=== PATIENT | female | born 1950 | race Caucasian/White ===

== ENCOUNTER 2019-09-01 07:59 | Outpatient (RCR) | payer MEDICARE, BC, SELFPAY ==
--- NOTE | 2019-11-03 12:43 | PCWOUND ---
WOCN NOTE Patient unable to be evaluated due to COVID 19 restrictions. Held phone assessment. Patients reports area to the left posterior thigh measures 2.5 cm in length by 2 cm in width by 0.1 in depth. reports NO SS of infection present. Patient in need of home wound care supplies.
== END 2019-09-29 23:59 | disposition home or self-care (01) ==
LOC: ANHWOC 07:59
PROVIDERS: PCP Internal Medicine; Visit Provider Internal Medicine
DX: L97.129 Non-pressure chronic ulcer of left thigh with unspecified severity (principal)
CPT/HCPCS: 99212; G0463

== ENCOUNTER 2019-09-10 14:54 | Outpatient (CLI) | payer MEDICARE, SELFPAY ==
--- NOTE | ~2019-09-10 | CT_ITS ---
EXAMINATION: CT soft tissue neck wo con EXAM DATE: 09/10/2019 15:28 INDICATION: Parotid mass. TECHNIQUE: Spiral CT of the neck was performed without contrast. Axial, coronal and sagittal images were reviewed. The dose-length product (DLP) for this examination was 550.28 mGy-cm. The exposure was tailored according to patient size (auto mA exposure control), and iterative reconstruction (ASIR ) was used as additional dose reduction technique. Comparison is made to prior examination from 2014. FINDINGS: The thyroid gland is unremarkable. The submandibular and parotid glands are symmetric. There is no cervical lymphadenopathy. There are no masses identified. The superior mediastinum is unremarkable. The airway is unremarkable. Parapharyngeal and pre-glottic fat planes are preserve d. Limited evaluation of cervical vessels on this noncontrast study. The orbits are unremarkable. Visualized sinuses and mastoid air cells are well aerated. Lung apices unremarkable. Advanced c ervical spondylosis. Visualized sinuses are aerated. IMPRESSION: No parotid mass or cervical lymphadenopathy. Reviewed, dictated and finalized at location B. LEY COLLECTOR
== END 2019-09-10 14:55 | disposition home or self-care (01) ==
PROVIDERS: PCP Internal Medicine; Visit Provider Otolaryngology
DX: R22.0 Localized swelling, mass and lump, head (principal)
CPT/HCPCS: 70490

== ENCOUNTER 2020-05-23 15:22 | Emergency (ER) | payer MEDICARE, SELFPAY ==
--- NOTE | ~2020-05-23 | XR_ITS ---
EXAMINATION: XR chest 2V DATE: 05/23/2020 16:38 INDICATION: Left sternal chest pain TECHNIQUE: frontal and lateral views of the chest were obtained. COMPARISON: Chest radiograph dated 10/06/2015 FINDINGS: Cardiomegaly. Opacities at the posterior lung bases on the lateral projection. No pneumothorax or def initive pleural effusion. Mild thoracic spondylosis. IMPRESSION: 1. Opacities in the dependent lung zones which could represent atelectasis, aspiration, pneumonia or mild pulmonary edema. 2. Cardiomegaly. Reviewed, dictated and finalized at location B. IMPRESSION: 1. Opacities in the dependent lung zones which could represent atelectasis, asp iration, pneumonia or mild pulmonary edema. 2. Cardiomegaly.
--- NOTE | 2020-05-23 15:25 | ECG_ITS ---
Measurements Intervals [place] Rate: 86 P: 36 MT: 162 QRS: -25 QRSD: 117 T: 44 QT: 413 QTc: 497 Interpretive Statements SINUS RHYTHM INCOMPLETE LEFT BUNDLE BRANCH BLOCK BORDERLINE R WAVE PROGRESSION, ANTERIOR LEADS BORDERLINE ST ABNORMALITY- HIGH LATERAL LEADS BASELINE ARTIFACT- I, II, III, AVR, AVL, AVF, V1-V3 ABNORMAL ECG Electronically Signed On 05-23-2020 15:42:15 CDT by Paulo Cruz D.O.
--- NOTE | 2020-05-23 15:48 | ED.CHESTPAIN ---
HPI - Chest Pain General Chief Complaint: Chest Pain Stated Complaint: chest pain Time Seen by Provider: 05/23/20 15:25 Source: patient and family Mode of arrival: wheelchair Limitations: no limitations History of Present Illness HPI narrative: 69-year-old female History of diabetes hypertension high cholesterol and morbid obesity Complains that she was on her way to a doctor's appointment in their van today and her left shoulder back and chest began to hurt She said to her it felt muscular Does not think she had any undue strains or exertions and getting into the van Was very And it is better now No associated diaphoresis dizziness dyspnea nausea or vomiting She currently has very little discomfort but symptoms cannot be renewed by moving her left arm about Related Data Home Medications Medication Instructions Recorded Confirmed acetaminophen 325 mg PO ONCE PRN 05/27/19 07/01/19 albuterol sulfate 2 puff INHALATION QID PRN 05/27/19 07/01/19 ascorbic acid (vitamin C) [Vitamin 500 mg PO DAILY 05/27/19 07/01/19 C] calcium carbonate-vitamin D3 1 tablet PO BID 05/27/19 07/01/19 [Os-Zbigniew 500 + D3] levothyroxine 25 mcg PO DAILY 05/27/19 07/01/19 metoprolol tartrate [Lopressor] 50 mg PO Q12H 05/27/19 07/01/19 nomegqenxmek-dzi-iecu-FA-vit K 1 tablet PO DAILY 05/27/19 07/01/19 [Adults Multivitamin] nystatin 1 applic TOPICAL BID 05/27/19 07/01/19 polyethylene glycol 3350 [Miralax] 17 g PO DAILY 05/27/19 07/01/19 amlodipine 5 mg tablet 5 mg PO DAILY 02/24/20 Allergies Allergy/AdvReac Type Severity Reaction Status Date / Time heparin Allergy Unknown unknown Verified 05/23/20 15:52 Heparin Analogues Allergy Unknown unknown Verified 05/23/20 15:52 Iodinated Contrast Media Allergy Unknown unknown Verified 05/23/20 15:52 iodine Allergy Unknown unknown Verified 05/23/20 15:52 morphine Allergy Unknown unknown Verified 05/23/20 15:52 Review of Systems Review of Systems: All systems reviewed & are unremarkable except as noted in HPI and below Constitutional: Constitutional: Denies chills, Denies fatigue, Denies fever(s), Denies headache(s) and Reports weakness Eyes: Eyes: Denies change in vision and Denies other visual disturbances ENT: Denies headache(s), Denies epistaxis, Denies nasal congestion and Denies sore throat Cardiovascular: Cardiovascular: Denies chest pain, Denies leg edema, Denies palpitations and Denies dyspnea Respiratory: Respiratory: Denies cough, Reports dyspnea and Denies wheezing Gastrointestinal: Gastrointestinal: Denies abdominal pain, Denies diarrhea, Denies nausea and Denies vomiting Genitourinary: Genitourinary: Denies urinary frequency Musculoskeletal: Musculoskeletal: Reports back pain, Reports myalgias, Denies deformity, Reports arthralgias, Denies joint swelling, Denies muscle weakness and Denies numbness Integumentary/Breasts: Skin/Breast: Denies rash, Denies unusual bruising and Denies wounds Neurologic: Denies Abnormal speech present, Denies headache(s), Denies focal weakness, Denies numbness and Denies weakness Psychiatric: Psychiatric: Reports no additional psychiatric complaints Endocrine: Endocrine: Denies fatigue and Denies palpitations Hematologic/Lymphatic: Hematologic/Lymphatic: Denies easy bleeding and Denies easy bruising Allergic/Immunologic: Allergic/Immunologic: Denies wheezing PMFSH Past Medical History Medical History (Updated 05/23/20 @ 20:03 by George Downs MD) BiPAP (biphasic positive airway pressure) dependence Dependence on supplemental oxygen Dysuria Hx of pulmonary embolus Morbid obesity Type 2 diabetes mellitus without complications Family History Family History Mother Patient's mother is Acute myocardial infarction Family history of obesity Father Patient's father is Family history of chronic obstructive pulmonary disease, Onset Age: 70 Sibling Mora
[2020-05-23 15:55] VITALS: BP 128/57; PULSE 82; RESP 20; TEMP 36.9; O2SAT 98
--- NOTE | 2020-05-23 15:59 | PC.NURSE ---
Called Phlebotomy to draw pt
[2020-05-23 16:20] LABS: Basophils Percent Auto 0.2 % (0.2-1.2); Eosinophils Absolute Auto 0.3 K/mm3 (0-0.3); Eosinophils Percent Auto 3.5 % (0-4.4); Hematocrit 31.9 % (37.0-47.0); Hemoglobin 10.3 g/dL (12.0-15.0); Immature Granulocyte Absolute 0.03 K/mm3 (0.00-0.031); Immature Granulocyte Percent A 0.4 % (0-0.5); Lymphocytes Absolute Auto 1.78 K/mm3 (0.9-3.2); Lymphocytes Percent Auto 21.5 % (18.3-44.2); Mean Corpuscular HGB Conc 32.3 g/dl (32-36); Mean Corpuscular Hemoglobin 32.9 pg (26-34); Mean Corpuscular Volume 101.9 fl (80-100); Monocytes Absolute Auto 0.7 K/mm3 (0.1-0.6); Monocytes Percent Auto 8.2 % (2.6-8.5); Neutrophils Absolute Auto 5.5 K/mm3 (1.3-6.7); Neutrophils Percent Auto 66.2 % (45.5-73.1); Platelet Count Result 250 k/mm3 (150-375); Red Blood Count 3.13 M/mm3 (4.2-5.4); Red Cell Distribution Width 13.9 % (11.5-14.5); White Blood Count 8.3 K/mm3 (4.5-10.0)
[2020-05-23 16:31] LABS: Anion Gap 8 mmol/L (8-16); Blood Urea Nitrogen 33 mg/dL (7-17); Calcium 8.9 mg/dL (8.4-10.2); Carbon Dioxide 30 mmol/L (22-30); Chloride 101 mmol/L (98-107); Estimated Glomerular Filt Rate 37; Glucose 122 mg/dL (65-105); Potassium 4.6 mmol/L (3.4-5.0); Sodium 139 mmol/L (137-145)
[2020-05-23 16:40] LABS: INR 1.6; Prothrombin Time 18.5 Seconds (11.1-14.7)
[2020-05-23 16:41] LABS: Partial Thromboplastin Time 33.3 SECONDS (22.3-36.8)
[2020-05-23 16:42] LABS: Troponin I < 0.012 ng/mL (0.000-0.034)
[2020-05-23] MEDS: ASPIRIN 81 MG CHEWABLE TABLET 324 MG PO (16:53)
[2020-05-23 18:33] LABS: Troponin I < 0.012 ng/mL (0.000-0.034)
== END 2020-05-23 20:08 | disposition home or self-care (01) ==
PROVIDERS: Emergency Provider Emergency Medicine; PCP Internal Medicine
DX: R07.9 Chest pain, unspecified (principal); E11.9 Type 2 diabetes mellitus without complications; I10 Essential (primary) hypertension; E78.00 Pure hypercholesterolemia, unspecified; E66.01 Morbid (severe) obesity due to excess calories; Z99.81 Dependence on supplemental oxygen; Z86.711 Personal history of pulmonary embolism; I44.7 Left bundle-branch block, unspecified; R94.31 Abnormal electrocardiogram [ECG] [EKG]; Z79.4 Long term (current) use of insulin
CPT/HCPCS: 36415; 71046; 80048; 84484; 85025; 85610; 85730; 93005; 99284; A9270

== ENCOUNTER 2020-05-25 07:18 | Outpatient (RCR) | payer MEDICARE, SELFPAY ==
--- NOTE | 2019-10-12 10:54 | PCWOUND ---
Appointment cancelled for 10/13/19 due to COVID-19 fear and patient having respiratory issues. Appointment rescheduled for 11/03/19. Patient will notify wound center of any changes.
--- NOTE | 2019-11-03 09:07 | PCWOUND ---
WOCN NOTE patients spouse called to cancel appointment for today 11/03/2019 due to the COVID-19 restrictions. Spouse will contact wound center for next appointment once restrictions are lifted.
== END 2020-06-05 23:59 | disposition home or self-care (01) ==
LOC: ANHWOC 07:18
PROVIDERS: PCP Internal Medicine; Visit Provider Internal Medicine
DX: L97.129 Non-pressure chronic ulcer of left thigh with unspecified severity (principal)
CPT/HCPCS: 99212; 99213; A9270; G0463

== ENCOUNTER 2020-10-25 07:41 | Outpatient (RCR) | payer MEDICARE, SELFPAY | END 2020-11-07 23:59 | disposition home or self-care (01) | LOC: ANHWOC 07:41 | PROVIDERS: PCP Internal Medicine; Visit Provider Internal Medicine | DX: L97.129 Non-pressure chronic ulcer of left thigh with unspecified severity (principal); I83.009 Varicose veins of unspecified lower extremity with ulcer of unspecified site | CPT/HCPCS: 99212; 99213; A9270; G0463 ==

== ENCOUNTER 2020-11-13 15:25 | Outpatient (CLI) | payer MEDICARE, SELFPAY ==
--- NOTE | ~2020-11-13 | US_ITS ---
EXAMINATION: US venous doppler UE DATE: 11/13/2020 16:35 INDICATION: Left upper limb pain. TECHNIQUE: Grayscale ultrasound images without and with compression and Doppler ultrasound images of the left upper extremity veins were obtained. COMPARISON: None. FINDINGS: The visualized portions of the left internal jugular vein, subclavian vein, axillary vein, brachial v eins, basilic vein, cephalic vein, radial vein, and ulnar vein are patent. IMPRESSION: 1. No deep venous thrombosis. Reviewed, dictated and finalized at location B.
[2020-11-13 16:20] LABS: Basophils Percent Auto 0.2 % (0.2-1.2); Eosinophils Absolute Auto 0.5 K/mm3 (0-0.3); Eosinophils Percent Auto 5.7 % (0-4.4); Hematocrit 28.3 % (37.0-47.0); Hemoglobin 8.6 g/dL (12.0-15.0); Immature Granulocyte Absolute 0.02 K/mm3 (0.00-0.031); Immature Granulocyte Percent A 0.2 % (0-0.5); Lymphocytes Absolute Auto 1.95 K/mm3 (0.9-3.2); Lymphocytes Percent Auto 23.2 % (18.3-44.2); Mean Corpuscular HGB Conc 30.4 g/dl (32-36); Mean Corpuscular Hemoglobin 29.1 pg (26-34); Mean Corpuscular Volume 95.6 fl (80-100); Mean Platelet Volume 9.9 fl (7.4-10.4); Monocytes Absolute Auto 0.7 K/mm3 (0.1-0.6); Monocytes Percent Auto 8.5 % (2.6-8.5); Neutrophils Absolute Auto 5.2 K/mm3 (1.3-6.7); Neutrophils Percent Auto 62.2 % (45.5-73.1); Platelet Count Result 282 k/mm3 (150-375); Red Blood Count 2.96 M/mm3 (4.2-5.4); Red Cell Distribution Width 15.1 % (11.5-14.5); White Blood Count 8.4 K/mm3 (4.5-10.0)
[2020-11-13 16:30] LABS: Anion Gap 7 mmol/L (8-16); Blood Urea Nitrogen 26 mg/dL (7-17); Carbon Dioxide 29 mmol/L (22-30); Chloride 104 mmol/L (98-107); Estimated Glomerular Filt Rate 34; Glucose 106 mg/dL (65-105); Potassium 4.4 mmol/L (3.4-5.0); Sodium 140 mmol/L (137-145)
[2020-11-13 16:32] LABS: INR 2.4; Prothrombin Time 26.8 Seconds (11.1-14.7)
[2020-11-13 16:33] LABS: Rheumatoid Factor < 8.6 IU/ML (<12)
[2020-11-13 17:12] LABS: Erythrocyte Sedimentation Rate > 140 mm/hr (0-20)
== END 2020-11-13 15:26 | disposition home or self-care (01) ==
PROVIDERS: PCP Internal Medicine; Visit Provider Internal Medicine
DX: M79.10 Myalgia, unspecified site (principal); Z79.01 Long term (current) use of anticoagulants; M79.642 Pain in left hand; M79.89 Other specified soft tissue disorders; N18.30 Chronic kidney disease, stage 3 unspecified
CPT/HCPCS: 36415; 80048; 85025; 85610; 85652; 86430; 93971

== ENCOUNTER 2021-01-10 07:20 | Outpatient (RCR) | payer MEDICARE, SELFPAY ==
--- NOTE | 2021-01-31 12:12 | PCWOUND ---
WOCN NOTE cancelled appointment for next week patient currently has home health to care for wounds. daughter will call when wound care needs to resume.
== END 2021-02-13 23:59 | disposition home or self-care (01) ==
LOC: ANHWOC 07:20
PROVIDERS: PCP Internal Medicine; Visit Provider Internal Medicine
DX: L97.129 Non-pressure chronic ulcer of left thigh with unspecified severity (principal); I83.009 Varicose veins of unspecified lower extremity with ulcer of unspecified site
CPT/HCPCS: 99212; 99213; A9270; G0463

== ENCOUNTER 2021-01-17 16:06 | Inpatient (IN) | payer MEDICARE, SELFPAY ==
[2021-01-17] VITALS (18 sets, daily range): BP systolic 114–141; BP diastolic 50–53; PULSE 53–71; RESP 14–21; TEMP 36.7–37.1; O2SAT 95–100; BMI 64.5
--- NOTE | ~2021-01-17 | XR_ITS ---
XR chest 1V portable 01/21/2021 06:13 Indication: Dyspnea Procedure: AP portable chest Comparison: Comparison to multiple prior studies sequentially, with oldest reviewed study dated 09/22. Findings: Cardiomegaly. Pulmonary edema. Small right pleural effusion. No pneumothorax. No acute osse ous abnormality. Impression: 1: Cardiomegaly with pulmonary edema. Reviewed, dictated and finalized at location A. Impression: 1: Cardiomegaly with pulmonary edema.
--- NOTE | ~2021-01-17 | CT_ITS ---
EXAMINATION: CT abdomen pelvis wo con DATE: 01/17/2021 16:57 INDICATION: Right abdominal pain. TECHNIQUE: Computed tomography (CT) of the abdomen and pelvis was performed without intravenous contr ast. Automated exposure control and iterative reconstruction technique were employed. The dose-length product was 1696.40 mGy-cm. COMPARISON: CT abdomen and pelvis 03/03/2015 FINDINGS: Sensitivity is decreased by obesity. The visualized portions of the lung bases demonstrate mild atelectasis. Calcified left lung nodules and calcified left hilar lymph nodes are consistent wit h old granulomatous disease. No pleural effusion. Cardiomegaly is noted. There are coronary artery ca lcifications. There are calcifications of the aortic valve. No pericardial effusion. The liver, gallb ladder, spleen, pancreas, adrenal glands, and kidneys are normal. There is a filter in the infrarenal inferior vena cava. There are no dilated loops of bowel. The appendix is normal. There are no pathol ogically enlarged lymph nodes. There are old healed fractures of right superior and inferior pubic ra mi. There are old fracture deformities of the sacrum. There is lumbar levoscoliosis and severe spondy losis. IMPRESSION: 1. No etiology for the patient's symptoms. Reviewed, dictated and finalized at location A.
--- NOTE | 2021-01-17 16:39 | ED.ABDPAIN ---
HPI - Abdominal Pain General Chief Complaint: Abdominal Pain Stated Complaint: ABD PAIN Time Seen by Provider: 01/17/21 16:11 Source: RN notes reviewed History of Present Illness HPI narrative: Patient presents emergency department from home for abdominal pain. Patient states pain began approximately 1 hour ago. The pain is located in the right lower abdomen and radiates around to the right flank described as sharp and stabbing patient states she has recently had a UTI and was initially on a 7-day course of Bactrim which she completed and then on a 7-day course of Macrobid patient denies any fever chills chest pain shortness of breath nausea vomiting or any other symptoms states that denies any other symptoms at this time. Patient states she is chronically on 2 L nasal cannula Related Data Home Medications Medication Instructions Recorded Confirmed ascorbic acid (vitamin C) [Vitamin 500 mg PO DAILY 05/27/19 01/03/21 C] calcium carbonate-vitamin D3 1 tablet PO BID 05/27/19 01/03/21 [Os-Zbigniew 500 + D3] acetaminophen 1,000 mg PO BID PRN 01/17/21 Allergies Allergy/AdvReac Type Severity Reaction Status Date / Time heparin Allergy Unknown Itching Verified 01/17/21 16:15 Heparin Analogues Allergy Unknown Itching Verified 01/17/21 16:15 Iodinated Contrast Media Allergy Unknown Rash Verified 01/17/21 16:15 iodine Allergy Unknown Rash Verified 01/17/21 16:15 morphine Allergy Unknown Itching Verified 01/17/21 16:15 Review of Systems Review of Systems: Narrative: Gen.: Denies fevers or chills ENT: Denies congestion Respiratory: Denies shortness of breath or cough CV: Denies chest pain or palpitations GI: See HPI denies burning, urgency, frequency or hematuria Musculoskeletal: Denies back pain or muscle pain Neuro: Denies numbness, tingling, weakness or focal weakness Skin: Denies rash Except as documented, all other systems reviewed and negative PMFSH Past Medical History Medical History BiPAP (biphasic positive airway pressure) dependence Dependence on supplemental oxygen Dysuria Hx of pulmonary embolus Morbid obesity Type 2 diabetes mellitus without complications Family History Family History Mother Patient's mother is Acute myocardial infarction Family history of obesity Father Patient's father is Family history of chronic obstructive pulmonary disease, Onset Age: 70 Sibling Patient's sister is Patient's brother is Patient's brother is in good health Family history of coronary artery disease Other Family history of congestive heart failure Family history of lung disease Social History Social History Smoking status: Never smoker Second hand tobacco smoke exposure: No Alcohol intake: never Substance use: never Exam Narrative: Exam Narrative: APPEARANCE: No acute distress, nontoxic, resting in bed HEENT: Normocephalic, atraumatic, OMM RESPIRATORY: No respiratory distress, clear to auscultation bilaterally with no rhonchi wheezing or rales CARDIOVASCULAR: RRR s murmur ABDOMINAL: Obese, soft, nondistended tender palpation right lower quadrant no tenderness right upper quadrant, left upper quadrant left lower quadrant no rebound or guarding Rectal: Moderate amount of soft brown stool that is Hemoccult negative MUSCULOSKELETAl: Moves all extremities. No clubbing, cyanosis or edema. NEURO: Awake and alert. Following commands, speech normal, no focal deficits SKIN:: Warm, dry. Normal Color pressure wounds over the left labia with no surrounding erythema or signs of infection PSYCHIATRIC: Normal affect/mood Course Course Emergency Course: Patient states she is followed by wound care for labial pressure wounds Discussed with GAURANG High for Dr. Hartman presentation work-up agrees with
[2021-01-17 16:40] LABS: Basophils Percent Auto 0.3 % (0.2-1.2); Eosinophils Absolute Auto 0.5 K/mm3 (0-0.3); Eosinophils Percent Auto 6.7 % (0-4.4); Hematocrit 25.5 % (37.0-47.0); Hemoglobin 7.7 g/dL (12.0-15.0); Immature Granulocyte Absolute 0.02 K/mm3 (0.00-0.031); Immature Granulocyte Percent A 0.3 % (0-0.5); Lymphocytes Absolute Auto 1.83 K/mm3 (0.9-3.2); Mean Corpuscular HGB Conc 30.2 g/dl (32-36); Mean Corpuscular Hemoglobin 29.5 pg (26-34); Mean Corpuscular Volume 97.7 fl (80-100); Mean Platelet Volume 9.8 fl (7.4-10.4); Monocytes Absolute Auto 0.7 K/mm3 (0.1-0.6); Monocytes Percent Auto 9.5 % (2.6-8.5); Neutrophils Percent Auto 57.2 % (45.5-73.1); Platelet Count Result 269 k/mm3 (150-375); Red Blood Count 2.61 M/mm3 (4.2-5.4); Red Cell Distribution Width 15.9 % (11.5-14.5)
[2021-01-17 16:50] LABS: Alanine Aminotransferase 12 U/L (4-35); Albumin Level 3.8 g/dL (3.5-5.1); Alkaline Phosphatase 65 U/L (38-126); Anion Gap 8 mmol/L (8-16); Aspartate Amino Transferase 28 U/L (14-36); Bilirubin,Total 0.2 mg/dL (0.2-1.3); Blood Urea Nitrogen 26 mg/dL (7-17); Calcium 8.6 mg/dL (8.4-10.2); Carbon Dioxide 25 mmol/L (22-30); Chloride 108 mmol/L (98-107); Estimated CRCL calculation 61 ml/min; Estimated Glomerular Filt Rate 44; Glucose 125 mg/dL (65-105); Lipase 87 U/L (23-300); Partial Thromboplastin Time 38.5 SECONDS (22.3-36.8); Potassium 4.8 mmol/L (3.4-5.0); Prothrombin Time 22.9 Seconds (11.1-14.7); Sodium 141 mmol/L (137-145)
[2021-01-17 17:34] LABS: Add Urine Microscopic? YES; Appearance Urine Cloudy (Clear); Bacteria Urine 1+ /hpf; Bilirubin Urine Negative (Negative); Color Urine Yellow (Yellow); Glucose Urine UA Negative (Negative); Ketones Urine Negative (Negative); Leukocyte Esterase Ur 3+ LEU/UL (Negative); Mucus Urine Rare /lpf; Nitrate Urine Negative (Negative); Protein Urine Negative (Negative); Squamous Epithelial Cell Urine Many /hpf (Few); Urobilinogen Urine Negative mg/dL (<2.0); WBC Urine >75 /hpf
[2021-01-17 17:35] LABS: Blood Urine Negative (Negative)
[2021-01-17 18:08] LABS: Glucose Point of Care 91 mg/dl (65-105)
--- NOTE | 2021-01-17 18:51 | PC.NURSE ---
pt had just been incontinent of urine. used ceiling lift to elevate pt to change linens. thapa placed with 700 cc cloudy yellow urine returned.
--- NOTE | 2021-01-17 20:03 | PC.NURSE ---
report to AYLIN DACOSTA. pt to go to room 300-1
--- NOTE | 2021-01-17 21:13 | ADMGEN ---
This patient, Anna Greer, was admitted to [address] [place] [address] Room 300-01 at 2049. Patient/family oriented to hospital policies and general routines including ID bracelet, bed and alarms, visiting hours, pain management, procedures, bathroom and other care routines, personal items, smoking policy, room service/diet, and visiting hours. Information on how to activate the Rapid Response Team has been discussed. Patient/Family are encouraged to report perceived risks to care and to ask questions if they do not understand what they are told or what they should do.
[2021-01-17 23:34] LABS: Hematocrit 25.9 % (37.0-47.0); Hemoglobin 7.7 g/dL (12.0-15.0)
[2021-01-18] VITALS (7 sets, daily range): BP systolic 110–133; BP diastolic 46–60; PULSE 68–78; RESP 13–22; TEMP 36.8–37.8; O2SAT 92–100
[2021-01-18 06:36] LABS: Hematocrit 24.8 % (37.0-47.0); Hemoglobin 7.5 g/dL (12.0-15.0)
[2021-01-18 07:09] LABS: Glucose Point of Care 116 mg/dl (65-105)
[2021-01-18 08:14] LABS: Alanine Aminotransferase 10 U/L (4-35); Albumin Level 3.5 g/dL (3.5-5.1); Alkaline Phosphatase 67 U/L (38-126); Anion Gap 7 mmol/L (8-16); Aspartate Amino Transferase 19 U/L (14-36); Bilirubin,Total 0.2 mg/dL (0.2-1.3); Blood Urea Nitrogen 23 mg/dL (7-17); Calcium 8.3 mg/dL (8.4-10.2); Carbon Dioxide 26 mmol/L (22-30); Chloride 105 mmol/L (98-107); Estimated CRCL calculation 60 ml/min; Estimated Glomerular Filt Rate 44; Glucose 123 mg/dL (65-105); Potassium 4.7 mmol/L (3.4-5.0); Sodium 138 mmol/L (137-145)
[2021-01-18 10:11] LABS: Hemoglobin 7.1 g/dL (12.0-15.0)
--- NOTE | 2021-01-18 10:51 | PM.IMHP ---
H&P: HPI History of Present Illness Date/Time: 01/18/21 08:15 Chief Complaint: Right lower quadrant pain Narrative: Patient is a 70-year-old female with a past medical history of diabetes chronic respiratory failure with home O2 use, COPD, CHF, appendectomy who presented to the ED for evaluation of right lower quadrant pain. Patient stated this all started about 2 weeks ago and stated that the pain is usually intermittent however yesterday her pain was consistent and unbelievable. Patient also stated that she uses O2 at home 2 L however she has noticed she has been more short of breath lately, which is abnormal to her considering that she can get up to the chair and pivot herself to the commode without becoming winded or short of breath. She did say that she has also noticed that she has been incontinent more lately. She stated that when she is sitting she just goes and does not realize. She also has lots of skin wounds on her legs, buttocks, labia, which are in all different stages of healing. Patient did state that she gets up with a walker at home. Patient does currently have a Crockett catheter which she stated was best for her at this time with the ulcers. I did talk to the patient about may be setting up something with care coordination about getting her an external catheter to help prevent further breakdown of her skin with the presence of urine. Patient did denied chest pain, palpitations, nausea, vomiting, constipation, diarrhea, decrease in appetite, sweats, chills, fever, syncope, falls, dizziness, lightheadedness. patient did state that she does have numbness and tingling in her fingers and toes. She stated this was a chronic issue. Patient also stated that she has felt like she has had more chills lately and has been really cold. Patient also stated that she has a cough that is pink and frothy in nature. Patient also talked about having a UTI. Patient states she was 1st notified by a her department coordinator, and then again by her urologist. Patient did states she was on antibiotics however she could not tell me which ones she was on. Looking upon her history I can see that she was prescribed Bactrim December 22, 2020, Nitrofurantoin which was prescribed on 01/09/2021, and penicillin VK which was prescribed on 01/04/21 which looks to be like a chronic antibiotic since it was for 90 day supply. Patient stated that she does not have any issues with burning or pain with urination. Feeling complaint she has is that she is incontinent most of the time. I did talk to the patient about care coordination and possibly getting her in external catheter. Patient also has many skin wounds. Ulceration on bilateral lower extremity was noted. She also has very dry skin on her inner thighs which look to be discolored. She also has 2 ulcerations on her buttocks bilaterally that are open and are draining blood and purulent type drainage. Wound nurses were and they are working with her today. At that time she was also stood. It was noted by the wound nurse that this patient has been here before with wound management. Patient did say that she is lives at home alone and that her daughter comes in every morning to change her leg bandages. Review of Systems Review of Systems: All systems reviewed & are unremarkable except as noted in HPI and below PMFSH Past Medical History Medical History Afib BiPAP (biphasic positive airway pressure) dependence CAD (coronary artery disease) CHF (congestive heart failure) COPD (chronic obstructive pulmonary disease) Dependence on supplemental oxygen Dysuria Frequent UTI Hx of pulmonary embolus Hyperlipidemia Morbid obesity Peripheral neuropathy Type 2 diabetes mellitus without complications Family History Family History Mother Acute myocardial infarction Patient's mother is Family history of obes
[2021-01-18 11:32] LABS: Glucose Point of Care 132 mg/dl (65-105)
[2021-01-18 12:58] LABS: Iron 35 ug/dL (37-170)
[2021-01-18] MEDS: SILVERGEL (ELTA) 45 ML 1 APPLIC TOPICAL (13:12)
[2021-01-18 13:19] LABS: Percent Iron Saturation 10 % (20-50)
[2021-01-18 17:41] LABS: Glucose Point of Care 120 mg/dl (65-105)
[2021-01-18] MEDS: FUROSEMIDE INJ 40 MG/4 ML VIAL IV PUSH (17:43)
[2021-01-18] MEDS: ASCORBIC ACID 500 MG TABLET PO (17:43)
[2021-01-18 19:48] LABS: Lactate Dehydrogenase 438 U/L (313-618)
[2021-01-18 19:53] LABS: Transferrin 275 mg/dL (206-381)
[2021-01-18 20:54] LABS: Folic Acid 6.6 ng/mL (2.76->20)
[2021-01-18] MEDS: INSULIN GLARGINE (*BKC) 100 UNITS/ML 85 UNITS SUB-Q (21:28)
[2021-01-18] MEDS: METOPROLOL TARTRATE 50 MG TAB PO (21:29)
[2021-01-18] MEDS: ACETAMINOPHEN 500 MG TABLET 1000 MG PO (21:43)
[2021-01-18 22:56] LABS: Glucose Point of Care 163 mg/dl (65-105)
[2021-01-19] VITALS (10 sets, daily range): BP systolic 108–150; BP diastolic 48–58; PULSE 70–89; RESP 18–22; TEMP 36.4–38.8; O2SAT 93–98
[2021-01-19] MEDS: LEVOTHYROXINE SODIUM 25 MCG TABLET PO (05:53)
[2021-01-19] MEDS: ACETAMINOPHEN 500 MG TABLET 1000 MG PO ×2 (06:08→19:01)
[2021-01-19 06:38] LABS: INR 1.7; Prothrombin Time 20.1 Seconds (11.1-14.7)
[2021-01-19 06:57] LABS: NT Pro B Type Natriuretic Pept 774 pg/mL (5-100)
[2021-01-19] MEDS: ATORVASTATIN 20 MG TABLET PO (07:56)
[2021-01-19] MEDS: PANTOPRAZOLE 40 MG TABLET PO (07:57)
[2021-01-19] MEDS: ASCORBIC ACID 500 MG TABLET PO ×2 (07:57→18:22)
[2021-01-19] MEDS: lisinopriL 5 MG TABLET PO (07:57)
[2021-01-19] MEDS: METOPROLOL TARTRATE 50 MG TAB PO ×2 (07:57→21:40)
[2021-01-19] MEDS: SILVERGEL (ELTA) 45 ML 1 APPLIC TOPICAL (07:58)
[2021-01-19] MEDS: FUROSEMIDE INJ 40 MG/4 ML VIAL IV PUSH ×2 (07:58→18:22)
[2021-01-19 08:00] LABS: Glucose Point of Care 123 mg/dl (65-105)
[2021-01-19 08:01] LABS: Hematocrit 24.7 % (37.0-47.0); Hemoglobin 7.2 g/dL (12.0-15.0); Mean Corpuscular HGB Conc 29.1 g/dl (32-36); Mean Corpuscular Hemoglobin 28.6 pg (26-34); Mean Platelet Volume 9.8 fl (7.4-10.4); Platelet Count Result 251 k/mm3 (150-375); Red Blood Count 2.52 M/mm3 (4.2-5.4); Red Cell Distribution Width 15.9 % (11.5-14.5); White Blood Count 9.2 K/mm3 (4.5-10.0)
[2021-01-19 08:40] LABS: Alanine Aminotransferase 9 U/L (4-35); Albumin Level 3.6 g/dL (3.5-5.1); Alkaline Phosphatase 55 U/L (38-126); Anion Gap 7 mmol/L (8-16); Aspartate Amino Transferase 28 U/L (14-36); Bilirubin,Total 0.6 mg/dL (0.2-1.3); Blood Urea Nitrogen 23 mg/dL (7-17); Calcium 8.6 mg/dL (8.4-10.2); Carbon Dioxide 27 mmol/L (22-30); Chloride 103 mmol/L (98-107); Estimated CRCL calculation 60 ml/min; Estimated Glomerular Filt Rate 44; Glucose 123 mg/dL (65-105); Potassium 4.8 mmol/L (3.4-5.0); Sodium 137 mmol/L (137-145)
--- NOTE | 2021-01-19 10:17 | P.PNIM_ITS ---
Progress Note: A&P Assessment and Plan (1) Acute UTI: Code(s): N39.0 - Urinary tract infection, site not specified Status: Acute Assessment and Plan: * Patient complains of RLQ pain that goes to the flank/back * Been treated with two different antibiotics for UTI with no success * Was treated with Bactrium and macrobid * On chronic PCN VK 500mg at home * Incontinent at home * UA showed Cloudy urine with WBC >75, Leukocyte Esterase 3+, and positive bacteria * Crockett inserted to control incontinence and wound care * Ceftriaxone 1gm Q24hr * Urine culture showed E Coli and susceptibility report confirms antibiotic ch oice * De-escalate antibiotics as needed. (2) Chronic hypoxemic respiratory failure: Code(s): J96.11 - Chronic respiratory failure with hypoxia Status: Acute Assessment and Plan: * On 2LNC at home * Here she is on 3LNC sat 95% * Wean oxygen as needed to maintain sats >92% * Continue home albuterol 2 puff QID, ipratropium 0.5mg neb * supplemental oxygen (3) Chronic obstructive pulmonary disease, unspecified: Qualifiers: COPD type: unspecified COPD Qualified Code(s): J44.9 - Chronic obstructive pulmonary disease, unspecified Code(s): J44.9 - Chronic obstructive pulmonary disease, unspecified Status: Acute Assessment and Plan: * See above (4) CHF (congestive heart failure): Qualifiers: Heart failure chronicity: acute on chronic Heart failure type: combined systolic and diastolic Qualified Code(s): I50.43 - Acute on chronic combined systolic (congestive) and diastolic (congestive) heart failure Code(s): I50.9 - Heart failure, unspecified Status: Acute Assessment and Plan: * Productive cough that is pink tinged * Hold home furosemide 60mg PO BID * Change to furosemide 40mg IV BID for 4 doses * Strict I&O * BNP 774 * Crockett catheter * Trend labs * Labs in the am (5) Chronic kidney disease, stage 3 (moderate): Qualifiers: Chronic kidney disease stage 3 subtype: stage 3b (GFR 30-44) Qualified Code(s): N18.32 - Chronic kidney disease, stage 3b Code(s): N18.3 - Chronic kidney disease, stage 3 (moderate) Status: Acute Assessment and Plan: * Creatinine today is 1.2 * Baseline creatinine is 1.2-1.5 * Avoid nephrotoxic medications * Trend hydration status * Lasix 40mg IV for 4 doses (6) Type 2 diabetes mellitus without complications: Qualifiers: Diabetes mellitus lobsterman insulin use: with lobsterman use Qualified Code(s): E11.9 - Type 2 diabetes mellitus without complications; Z79.4 - terminal carman (current) use of insulin Code(s): E11.9 - Type 2 diabetes mellitus without complications Status: Acute Assessment and Plan: * Current glucose 123 * Accu checks ACHS * Continue home Lantus 85 units * ISS * Trend Glucose * Adjust medications as needed. (7) A-fib: Qualifiers: Atrial fibrillation type: unspecified Qualified Code(s): I48.91 - Unspecified atrial fibrillation Code(s): I48.91 - Unspecified atrial fibrillation Status: Acute Assessment and Plan: * Chronic * Controlled * Metoprolol 50mg PO Q12hr, * Anticoagulation with warfarin 3mg PO daily * INR 1.7 * Trend INR till therapeutic * HR 70 (8) Abdominal pain, acute, right lower quadrant: Code(s):
--- NOTE | 2021-01-19 10:17 | PM.IMPN ---
Progress Note: A&P Assessment and Plan (1) Acute UTI: Code(s): N39.0 - Urinary tract infection, site not specified Status: Acute Assessment and Plan: Patient complains of RLQ pain that goes to the flank/back Been treated with two different antibiotics for UTI with no success Was treated with Bactrium and macrobid On chronic PCN VK 500mg at home Incontinent at home UA showed Cloudy urine with WBC >75, Leukocyte Esterase 3+, and positive bacteria Crockett inserted to control incontinence and wound care Ceftriaxone 1gm Q24hr Urine culture showed E Coli and susceptibility report confirms antibiotic choice De-escalate antibiotics as needed. (2) Chronic hypoxemic respiratory failure: Code(s): J96.11 - Chronic respiratory failure with hypoxia Status: Acute Assessment and Plan: On 2LNC at home Here she is on 3LNC sat 95% Wean oxygen as needed to maintain sats >92% Continue home albuterol 2 puff QID, ipratropium 0.5mg neb supplemental oxygen (3) Chronic obstructive pulmonary disease, unspecified: Qualifiers: COPD type: unspecified COPD Qualified Code(s): J44.9 - Chronic obstructive pulmonary disease, unspecified Code(s): J44.9 - Chronic obstructive pulmonary disease, unspecified Status: Acute Assessment and Plan: See above (4) CHF (congestive heart failure): Qualifiers: Heart failure chronicity: acute on chronic Heart failure type: combined systolic and diastolic Qualified Code(s): I50.43 - Acute on chronic combined systolic (congestive) and diastolic (congestive) heart failure Code(s): I50.9 - Heart failure, unspecified Status: Acute Assessment and Plan: Productive cough that is pink tinged Hold home furosemide 60mg PO BID Change to furosemide 40mg IV BID for 4 doses Strict I&O BNP 774 Crockett catheter Trend labs Labs in the am (5) Chronic kidney disease, stage 3 (moderate): Qualifiers: Chronic kidney disease stage 3 subtype: stage 3b (GFR 30-44) Qualified Code(s): N18.32 - Chronic kidney disease, stage 3b Code(s): N18.3 - Chronic kidney disease, stage 3 (moderate) Status: Acute Assessment and Plan: Creatinine today is 1.2 Baseline creatinine is 1.2-1.5 Avoid nephrotoxic medications Trend hydration status Lasix 40mg IV for 4 doses (6) Type 2 diabetes mellitus without complications: Qualifiers: Diabetes mellitus long-term insulin use: with vermin exterminator use Qualified Code(s): E11.9 - Type 2 diabetes mellitus without complications; Z79.4 - [facility] (current) use of insulin Code(s): E11.9 - Type 2 diabetes mellitus without complications Status: Acute Assessment and Plan: Current glucose 123 Accu checks ACHS Continue home Lantus 85 units ISS Trend Glucose Adjust medications as needed. (7) A-fib: Qualifiers: Atrial fibrillation type: unspecified Qualified Code(s): I48.91 - Unspecified atrial fibrillation Code(s): I48.91 - Unspecified atrial fibrillation Status: Acute Assessment and Plan: Chronic Controlled Metoprolol 50mg PO Q12hr, Anticoagulation with warfarin 3mg PO daily INR 1.7 Trend INR till therapeutic HR 70 (8) Abdominal pain, acute, right lower quadrant: Code(s): R10.31 - Right lower quadrant pain Status: Acute Assessment and Plan: Chronic UTI that has been treated three times outpatient Tender with palpation ABD CT does not show any abnormalities Will treat UTI and if worsens will get an ultrasound (9) Anemia: Qualifiers: Anemia type: unspecified type Qualified Code(s): D64.9 - Anemia, unspecified Code(s): D64.9 - Anemia, unspecified Status: Acute Assessment and Plan: HGB/HCT 7.2/24.7 Trend H/H Transfuse as needed Labs in the am Anemia
[2021-01-19 12:19] LABS: Glucose Point of Care 132 mg/dl (65-105)
[2021-01-19] MEDS: polyethylene glycoL 3350 17 GM POWD.PACK PO (12:45)
[2021-01-19 17:06] LABS: Glucose Point of Care 194 mg/dl (65-105)
[2021-01-19] MEDS: WARFARIN (*PBKC) 3 MG TABLET PO (18:22)
[2021-01-19 20:51] LABS: Glucose Point of Care 210 mg/dl (65-105)
[2021-01-19] MEDS: INSULIN GLARGINE (*BKC) 100 UNITS/ML 85 UNITS SUB-Q (21:41)
[2021-01-20] VITALS (14 sets, daily range): BP systolic 102–152; BP diastolic 33–56; PULSE 65–73; RESP 14–20; TEMP 36.3–37.7; O2SAT 92–99
[2021-01-20] MEDS: LEVOTHYROXINE SODIUM 25 MCG TABLET PO (06:20)
[2021-01-20 06:37] LABS: Basophils Percent Auto 0.1 % (0.2-1.2); Eosinophils Absolute Auto 0.3 K/mm3 (0-0.3); Eosinophils Percent Auto 3.5 % (0-4.4); Hematocrit 23.5 % (37.0-47.0); Immature Granulocyte Absolute 0.05 K/mm3 (0.00-0.031); Immature Granulocyte Percent A 0.5 % (0-0.5); Lymphocytes Absolute Auto 1.65 K/mm3 (0.9-3.2); Lymphocytes Percent Auto 17.6 % (18.3-44.2); Mean Corpuscular HGB Conc 29.4 g/dl (32-36); Mean Corpuscular Hemoglobin 28.4 pg (26-34); Mean Corpuscular Volume 96.7 fl (80-100); Mean Platelet Volume 9.9 fl (7.4-10.4); Monocytes Percent Auto 10.5 % (2.6-8.5); Neutrophils Absolute Auto 6.4 K/mm3 (1.3-6.7); Neutrophils Percent Auto 67.8 % (45.5-73.1); Platelet Count Result 241 k/mm3 (150-375); Red Blood Count 2.43 M/mm3 (4.2-5.4); Red Cell Distribution Width 15.8 % (11.5-14.5); White Blood Count 9.4 K/mm3 (4.5-10.0)
[2021-01-20 06:40] LABS: Hemoglobin 6.9 g/dL (12.0-15.0)
[2021-01-20 06:46] LABS: Alanine Aminotransferase 8 U/L (4-35); Albumin Level 3.5 g/dL (3.5-5.1); Alkaline Phosphatase 60 U/L (38-126); Anion Gap 7 mmol/L (8-16); Aspartate Amino Transferase 16 U/L (14-36); Bilirubin,Total 0.5 mg/dL (0.2-1.3); Blood Urea Nitrogen 23 mg/dL (7-17); Calcium 8.5 mg/dL (8.4-10.2); Carbon Dioxide 28 mmol/L (22-30); Chloride 100 mmol/L (98-107); Cholesterol 114 mg/dL (0-200); Estimated CRCL calculation 52 ml/min; Estimated Glomerular Filt Rate 37; Glucose 99 mg/dL (65-105); HDL Direct 24 mg/dL; Potassium 4.2 mmol/L (3.4-5.0); Sodium 135 mmol/L (137-145); Triglycerides 142 mg/dL (<150)
[2021-01-20 06:49] LABS: INR 1.5; Prothrombin Time 18.7 Seconds (11.1-14.7)
[2021-01-20 06:57] LABS: LDL Cholesterol Direct 39 mg/dL
[2021-01-20 06:58] LABS: Hypochromasia 2+ (NORMAL); Platelet Estimate Adequate (Adequate)
--- NOTE | 2021-01-20 07:35 | P.PNIM_ITS ---
Progress Note: A&P Assessment and Plan (1) Acute UTI: Code(s): N39.0 - Urinary tract infection, site not specified Status: Acute Assessment and Plan: * Patient complains of RLQ pain that goes to the flank/back * Been treated with two different antibiotics for UTI with no success * Was treated with Bactrium and macrobid * On chronic PCN VK 500mg at home * Incontinent at home * UA showed Cloudy urine with WBC >75, Leukocyte Esterase 3+, and positive bacteria * Crockett inserted to control incontinence and wound care * Ceftriaxone 1gm Q24hr * Urine culture showed Ecoli * De-escalate antibiotics as needed. (2) Chronic hypoxemic respiratory failure: Code(s): J96.11 - Chronic respiratory failure with hypoxia Status: Acute Assessment and Plan: * On 2LNC at home * Here she is on 3LNC sat 92% * Wean oxygen as needed to maintain sats >92% * Continue home albuterol 2 puff QID, ipratropium 0.5mg neb * supplemental oxygen (3) Chronic obstructive pulmonary disease, unspecified: Qualifiers: COPD type: unspecified COPD Qualified Code(s): J44.9 - Chronic obstructive pulmonary disease, unspecified Code(s): J44.9 - Chronic obstructive pulmonary disease, unspecified Status: Acute Assessment and Plan: * See above (4) CHF (congestive heart failure): Qualifiers: Heart failure chronicity: acute on chronic Heart failure type: combined systolic and diastolic Qualified Code(s): I50.43 - Acute on chronic combined systolic (congestive) and diastolic (congestive) heart failure Code(s): I50.9 - Heart failure, unspecified Status: Acute Assessment and Plan: * Productive cough that is clear and sticky * Hold home furosemide 60mg PO BID * furosemide 40mg IV BID for 4 more doses * Strict I&O * BNP in the am * Crockett catheter * Trend labs * Labs in the am * Daily weights * Echo ordered (5) Chronic kidney disease, stage 3 (moderate): Qualifiers: Chronic kidney disease stage 3 subtype: stage 3b (GFR 30-44) Qualified Code(s): N18.32 - Chronic kidney disease, stage 3b Code(s): N18.3 - Chronic kidney disease, stage 3 (moderate) Status: Acute Assessment and Plan: * Creatinine today is 1.4 * Baseline creatinine is 1.2-1.5 * Avoid nephrotoxic medications * Trend hydration status (6) Type 2 diabetes mellitus without complications: Qualifiers: Diabetes mellitus ad terminal makeup operator insulin use: with ad terminal makeup operator use Qualified Code(s): E11.9 - Type 2 diabetes mellitus without complications; Z79.4 - [facility] (current) use of insulin Code(s): E11.9 - Type 2 diabetes mellitus without complications Status: Acute Assessment and Plan: * Glucose today is 99 * Accu checks ACHS * Continue home Lantus 85 units * ISS * Trend Glucose * Adjust medications as needed. (7) A-fib: Qualifiers: Atrial fibrillation type: unspecified Qualified Code(s): I48.91 - Unspecified atrial fibrillation Code(s): I48.91 - Unspecified atrial fibrillation Status: Acute Assessment and Plan: * Chronic * Controlled * Metoprolol 50mg PO Q12hr, * Anticoagulation with warfarin 3mg PO daily, on hold for low HGB, awaiting occult blood * HR 70 (8) Abdominal pain, acute, right lower quadrant: Code(s): R10.31 - Right lower quadrant christophe
--- NOTE | 2021-01-20 07:35 | PM.IMPN ---
Progress Note: A&P Assessment and Plan (1) Acute UTI: Code(s): N39.0 - Urinary tract infection, site not specified Status: Acute Assessment and Plan: Patient complains of RLQ pain that goes to the flank/back Been treated with two different antibiotics for UTI with no success Was treated with Bactrium and macrobid On chronic PCN VK 500mg at home Incontinent at home UA showed Cloudy urine with WBC >75, Leukocyte Esterase 3+, and positive bacteria Crockett inserted to control incontinence and wound care Ceftriaxone 1gm Q24hr Urine culture showed Ecoli De-escalate antibiotics as needed. (2) Chronic hypoxemic respiratory failure: Code(s): J96.11 - Chronic respiratory failure with hypoxia Status: Acute Assessment and Plan: On 2LNC at home Here she is on 3LNC sat 92% Wean oxygen as needed to maintain sats >92% Continue home albuterol 2 puff QID, ipratropium 0.5mg neb supplemental oxygen (3) Chronic obstructive pulmonary disease, unspecified: Qualifiers: COPD type: unspecified COPD Qualified Code(s): J44.9 - Chronic obstructive pulmonary disease, unspecified Code(s): J44.9 - Chronic obstructive pulmonary disease, unspecified Status: Acute Assessment and Plan: See above (4) CHF (congestive heart failure): Qualifiers: Heart failure chronicity: acute on chronic Heart failure type: combined systolic and diastolic Qualified Code(s): I50.43 - Acute on chronic combined systolic (congestive) and diastolic (congestive) heart failure Code(s): I50.9 - Heart failure, unspecified Status: Acute Assessment and Plan: Productive cough that is clear and sticky Hold home furosemide 60mg PO BID furosemide 40mg IV BID for 4 more doses Strict I&O BNP in the am Crockett catheter Trend labs Labs in the am Daily weights Echo ordered (5) Chronic kidney disease, stage 3 (moderate): Qualifiers: Chronic kidney disease stage 3 subtype: stage 3b (GFR 30-44) Qualified Code(s): N18.32 - Chronic kidney disease, stage 3b Code(s): N18.3 - Chronic kidney disease, stage 3 (moderate) Status: Acute Assessment and Plan: Creatinine today is 1.4 Baseline creatinine is 1.2-1.5 Avoid nephrotoxic medications Trend hydration status (6) Type 2 diabetes mellitus without complications: Qualifiers: Diabetes mellitus detention insulin use: with exterminator helper termite use Qualified Code(s): E11.9 - Type 2 diabetes mellitus without complications; Z79.4 - [facility] (current) use of insulin Code(s): E11.9 - Type 2 diabetes mellitus without complications Status: Acute Assessment and Plan: Glucose today is 99 Accu checks ACHS Continue home Lantus 85 units ISS Trend Glucose Adjust medications as needed. (7) A-fib: Qualifiers: Atrial fibrillation type: unspecified Qualified Code(s): I48.91 - Unspecified atrial fibrillation Code(s): I48.91 - Unspecified atrial fibrillation Status: Acute Assessment and Plan: Chronic Controlled Metoprolol 50mg PO Q12hr, Anticoagulation with warfarin 3mg PO daily, on hold for low HGB, awaiting occult blood HR 70 (8) Abdominal pain, acute, right lower quadrant: Code(s): R10.31 - Right lower quadrant pain Status: Acute Assessment and Plan: Chronic UTI that has been treated three times outpatient Tender with palpation ABD CT does not show any abnormalities Will treat UTI and if worsens will get an ultrasound (9) Anemia: Qualifiers: Anemia type: unspecified type Qualified Code(s): D64.9 - Anemia, unspecified Code(s): D64.9 - Anemia, unspecified Status: Acute Assessment and Plan: HGB/HCT 6.9/23.5 Trend H/H 1 unit of PRBC ordered today (01/20/21) Transfuse as needed Labs in the am
[2021-01-20 07:41] LABS: Glucose Point of Care 92 mg/dl (65-105)
[2021-01-20] MEDS: ASCORBIC ACID 500 MG TABLET PO ×2 (08:24→18:26)
[2021-01-20] MEDS: PANTOPRAZOLE 40 MG TABLET PO ×2 (08:24→21:46)
[2021-01-20] MEDS: lisinopriL 5 MG TABLET PO (08:24)
[2021-01-20] MEDS: METOPROLOL TARTRATE 50 MG TAB PO ×2 (08:24→21:46)
[2021-01-20] MEDS: ATORVASTATIN 20 MG TABLET PO (08:24)
[2021-01-20] MEDS: SILVERGEL (ELTA) 45 ML 1 APPLIC TOPICAL (08:25)
[2021-01-20] MEDS: FUROSEMIDE INJ 40 MG/4 ML VIAL IV PUSH ×2 (08:25→18:26)
[2021-01-20] MEDS: polyethylene glycoL 3350 17 GM POWD.PACK PO (08:25)
[2021-01-20] MEDS: ACETAMINOPHEN 500 MG TABLET 1000 MG PO ×2 (08:38→21:47)
--- NOTE | 2021-01-20 09:38 | WPDGICN ---
Assessment and Plan Assessment and plan (1) JULIANNA (iron deficiency anemia): Code(s): D50.9 - Iron deficiency anemia, unspecified Status: Acute Assessment and Plan: 01/20/21 Consult GI Yessica Duke NP for Dr. Live Saleh Subjective: Alert and Oriented. No distress. complaining of RLQ pain but improved after tylenol and passing gas. She is currently on nasal cannala vis o2. She is currently eating a full breakfast with no complaints. She denies nausea or vomiting. Last BM on friday. Denies melena, hematochezia, or hematemesis. She does have Crockett in place. Exam: Abd Obese and generalized tenderness with no guarding or rigidity. Positive bowel sounds. 01/20/21: hgb 6.9/hct 23.5 iron 35, TIBC 36, Iron Sat 10%, ferritin 26 b12 385, folate 6.6 A. Iron Deficiency Anemia on Warfarin -GI blood will be ruled out but could be underlying AOCD. -hgb 7.7/hct 25.5 on admit -drop hgb 6.9/hct 23.5-1 unit PRBC ordered-pending transfusion -Iron 35, TIBC 36, iron sat 10%, ferritin 26 with normal b12 (borderline low) and folate -No visible signs of active GI bleeding at this time -Last colonoscopy [address] Harvey- Denies hx of polyps -Hx of ulcers per patient secondary to Aleve 5-6 years ago-Denies NSAIDs -Replace iron -PPI BID -Warfarin on hold -Monitor H&H, transfuse PRN -Start Clear liquids tomorrow and anticipate colon prep tomorrow -Potentially plan for EGD/Colonoscopy Friday with Dr. Susan Avila. RLQ abdominal pain -CT abd/pelvis without constrast showed no acute abnormalities -UTI with E.Coli -RLQ abdominal pain could be secondary to UTI or constipation -Monitor C. Chronic Constipationn -This is chronic -Manages with Miralax 17 gram daily outpatient -Continue Miralax 17 daily and increase to BID if needed-titrate to comfort D. GERD/Hx of Ulcers -hx of ulcers 5-6 years ago per patient -On nexium 40 mg outpatient -Increase PPI BID at this time due to JULIANNA as mentioned above -She is asymptomatic at this time. The procedures of colonoscopy and EGD, their indications, alternatives of barium studies and risks including perforation, bleeding, infection, reaction to medication as well as the possible need for blood or surgery were discussed with the patient prior to the procedure. The patient voices understanding, agrees to proceed and provides informed consent. GI Consult Note Consult date/time: 01/20/21 09:38 HPI: Anna Greer is a 70 year old female with PMH of CHF, Afib, COPD, CHF, CKD stage 3, lymphedema, DM type 2, HTN, peripheral neuropathy, sleep apnea, hx of gastric ulcer, chronic UTI, PE/DVT (2007), who is asked to be seen by hospitalist service for anemia. She presented to ED for RLQ abdominal pain that she described as throbbing and intermittent with no radiation. She also states yesterday she had [address] abd/pelvis without contrast that showed no acute abnormalities. She was noted to have UTI with culture +e coli. She was noted have baseline hgb 10 and on admission hgb 7.7/hct 25.5. She had a drop 01/20/21 hgb 6.9/hct 23.5. She denies any melena, hematochezia, hemtemesisu, or hematuria. She does report chronic constipation and takes Miralax 17 grams daily to keep her having 1-2 BM per day. She states her last BM was Friday, 01/17.She reports her appetite is well and felt nauseous yesterday but no vomiting. She denies any dyspepsia, brash, pyrosis, regurgitation, early satiety, diarrhea, dysphagia, odynophagia, food or lactose intolerance. She does have GERD and takes Nexium 40 mg with no complaints of breakthrough. She does states she has lost 10 lbs. She states she had Colonoscopy around [address] Harvey and has had total 3 colonoscopies. She denies hx of colon polyps. She does state she was told she had an ulcer before, but unsure if this was diagnosed via endoscopy. She said it was due to taking Aleve at th
[2021-01-20 10:00] LABS: Immature Reticulocyte Fraction 30.9 % (3.0-15.9); Reticulocyte Hemoglobin Conten 27.5 pg (28.2-35.7); Reticulocyte Percent 2.59 % (0.7-4.3); Reticulocytes Absolute 0.06 B/L (32.2-175.7)
[2021-01-20 12:10] LABS: Glucose Point of Care 123 mg/dl (65-105)
[2021-01-20] MEDS: FERROUS SULFATE 324 MG TABLET PO (12:38)
[2021-01-20] MEDS: TUBING, BLOOD PLUM PUMP TUBING 1 EACH XX (12:38)
[2021-01-20] MEDS: SODIUM CHLORIDE 0.9% IV 250 ML 30 ML IV CONT (12:39)
[2021-01-20 13:14] LABS: NT Pro B Type Natriuretic Pept 1320 pg/mL (5-100)
[2021-01-20] MEDS: HYDROcodone/acetaminophen (*CRX) 5-325 MG TABLET 1 TAB PO (16:34)
[2021-01-20 16:53] LABS: Glucose Point of Care 163 mg/dl (65-105)
[2021-01-20 22:36] LABS: Glucose Point of Care 160 mg/dl (65-105)
[2021-01-21] VITALS (9 sets, daily range): BP systolic 128–140; BP diastolic 37–56; PULSE 64–87; RESP 16–20; TEMP 36.7–37.2; O2SAT 92–100
[2021-01-21] MEDS: LEVOTHYROXINE SODIUM 25 MCG TABLET PO (06:01)
[2021-01-21] MEDS: ACETAMINOPHEN 500 MG TABLET 1000 MG PO (06:01)
[2021-01-21 06:44] LABS: Basophils Percent Auto 0.2 % (0.2-1.2); Eosinophils Absolute Auto 0.4 K/mm3 (0-0.3); Eosinophils Percent Auto 4.2 % (0-4.4); Hematocrit 26.4 % (37.0-47.0); Hemoglobin 7.9 g/dL (12.0-15.0); Immature Granulocyte Absolute 0.04 K/mm3 (0.00-0.031); Immature Granulocyte Percent A 0.5 % (0-0.5); Lymphocytes Absolute Auto 1.77 K/mm3 (0.9-3.2); Lymphocytes Percent Auto 20.3 % (18.3-44.2); Mean Corpuscular HGB Conc 29.9 g/dl (32-36); Mean Corpuscular Volume 97.1 fl (80-100); Mean Platelet Volume 10.2 fl (7.4-10.4); Monocytes Percent Auto 11.1 % (2.6-8.5); Neutrophils Absolute Auto 5.6 K/mm3 (1.3-6.7); Neutrophils Percent Auto 63.7 % (45.5-73.1); Platelet Count Result 253 k/mm3 (150-375); Red Blood Count 2.72 M/mm3 (4.2-5.4); Red Cell Distribution Width 15.8 % (11.5-14.5); White Blood Count 8.7 K/mm3 (4.5-10.0)
[2021-01-21 06:54] LABS: INR 1.2; Prothrombin Time 16.2 Seconds (11.1-14.7)
[2021-01-21 07:01] LABS: Alanine Aminotransferase 9 U/L (4-35); Albumin Level 3.5 g/dL (3.5-5.1); Alkaline Phosphatase 51 U/L (38-126); Anion Gap 8 mmol/L (8-16); Aspartate Amino Transferase 32 U/L (14-36); Bilirubin,Total 0.7 mg/dL (0.2-1.3); Blood Urea Nitrogen 28 mg/dL (7-17); Calcium 8.4 mg/dL (8.4-10.2); Carbon Dioxide 25 mmol/L (22-30); Chloride 101 mmol/L (98-107); Estimated CRCL calculation 56 ml/min; Estimated Glomerular Filt Rate 40; Glucose 115 mg/dL (65-105); Potassium 4.8 mmol/L (3.4-5.0); Sodium 134 mmol/L (137-145)
[2021-01-21 08:38] LABS: Glucose Point of Care 123 mg/dl (65-105)
[2021-01-21] MEDS: ATORVASTATIN 20 MG TABLET PO (08:54)
[2021-01-21] MEDS: HYDROcodone/acetaminophen (*CRX) 5-325 MG TABLET 1 TAB PO (08:54)
[2021-01-21] MEDS: ASCORBIC ACID 500 MG TABLET PO ×2 (08:54→17:02)
[2021-01-21] MEDS: FERROUS SULFATE 324 MG TABLET PO (08:55)
[2021-01-21] MEDS: lisinopriL 5 MG TABLET PO ×2 (08:55→17:04)
[2021-01-21] MEDS: METOPROLOL TARTRATE 50 MG TAB PO ×2 (08:55→21:24)
[2021-01-21] MEDS: PANTOPRAZOLE 40 MG TABLET PO ×2 (08:55→21:24)
[2021-01-21] MEDS: FUROSEMIDE INJ 40 MG/4 ML VIAL IV PUSH ×2 (08:55→17:07)
[2021-01-21] MEDS: polyethylene glycoL 3350 17 GM POWD.PACK PO (08:55)
[2021-01-21] MEDS: SILVERGEL (ELTA) 45 ML 1 APPLIC TOPICAL (08:56)
--- NOTE | 2021-01-21 10:18 | WPDGIPROGNO ---
Progress Note: A&P Additional Plan GI Therese for Candice 21 Jan 2021 Still with RLQ pain. No N/V/D/C/BRBPR/melena Pippa clears VSS soft/Right inguinal tenderness 01/20/21: hgb 6.9/hct 23.5 iron 35, TIBC 36, Iron Sat 10%, ferritin 26 b12 385, folate 6.6 01/21/2021: Hct 26, INR 1.2 A. Iron Deficiency Anemia on Warfarin: - Possible GI blood loss but could be underlying AOCD. - B12 is borderline low suggesting total body depletion; replete - Folate normal - No visible signs of active GI bleeding at this time - Last colonoscopy [address] Harvey- Denies hx of polyps - Hx of ulcers per patient secondary to Aleve 5-6 years ago-Denies NSAIDs - Replace iron - PPI BID - Warfarin on hold - Monitor H&H, transfuse PRN - Plan for EGD/Colonoscopy Friday with Dr. Candice Laughlin RLQ inguinal pain: - CT abd/pelvis without constrast showed no acute abnormalities - UTI with E.Coli - Doubt GI cause of inguinal pain C. Chronic Constipation: managed with Miralax 17 gram daily outpatient; continue and increase prn D. GERD/Hx of Ulcers - History of ulcers 5-6 years ago per patient - On Nexium 40 mg outpatient - Increase PPI BID at this time due to JULIANNA as mentioned above - She is asymptomatic at this time Further recommendations per Dr. Radha Harvey Thanks, [facility] [phone] Subjective Date/time seen: 01/21/21 10:18 Objective Data Vital Signs Vital Signs: Vital Signs - 24 hr 01/20/21 10:28 01/20/21 13:09 01/20/21 13:24 Temperature 36.8 C 36.6 C Pulse Rate 73 65 Respiratory Rate 20 20 Blood Pressure 102/33 L 108/37 L Pulse Oximetry 98 95 94 01/20/21 14:24 01/20/21 14:25 01/20/21 15:24 Temperature 36.8 C 36.3 C L 36.7 C Pulse Rate 68 66 65 Respiratory Rate 18 20 18 Blood Pressure 125/39 L 121/37 L 109/37 L Pulse Oximetry 98 95 97 01/20/21 17:00 01/20/21 20:00 01/20/21 21:46 Temperature 36.9 C Pulse Rate 69 73 Respiratory Rate 18 Blood Pressure 104/38 L Pulse Oximetry 97 94 01/20/21 21:47 01/20/21 22:00 01/20/21 23:39 Temperature 37.4 C 37.7 C H Pulse Rate 72 71 Respiratory Rate 20 14 Blood Pressure 133/37 L Pulse Oximetry 96 95 01/21/21 06:00 Temperature 36.7 C Pulse Rate 76 Respiratory Rate 20 Blood Pressure 140/56 L Pulse Oximetry 98 Intake/Output Intake/Output: Intake & Output 01/18/21 01/19/21 01/20/21 01/21/21 23:59 23:59 23:59 23:59 Intake Total 1240 1250 2620 550 Output Total 2200 4705 3900 1900 Balance -960 -3455 -1280 -1350 Meds/Results Medications: Active Medications Generic Name Dose Route Start Last Admin Trade Name Freq PRN Reason Stop Dose Admin Acetaminophen 1,000 mg 01/19/21 22:12 01/21/21 06:01 Acetaminophen 500 Mg Tablet PO 1,000 mg Q6H PRN Administration Pain 1-3 or Fever Hydrocodone Bitart/Acetaminophen 1 tab 01/20/21 15:29 01/21/21 08:54 Hydrocodone/Acetaminophen (*Crx) 5-325 Mg Tablet PO 1 tab Q6H PRN Administration Pain Rated 4-10 Albuterol 2 puff 01/18/21 11:37 Albuterol Sulfate (*Sp) Aerosol 1 Puff INHALATION QID PRN Shortness Of Breath Ascorbic Acid 500 mg 01/18/21 17:00 01/21/21 08:54 Ascorbic Acid 500 Mg Tablet PO 500 mg BID CLAY Administration Atorvastatin Calcium 20 mg 01/19/21 09:00 01/21/21 08:54 Atorvastatin 20 Mg Tablet PO 20 mg DAILY CLAY Administration Bisacodyl 10 mg 01/21/21 12:00 Bisacodyl 5 Mg Tablet Ec PO 01/21/21 21:01 1200,1500,2100 CLAY Calcium Carbonate 500 mg 01/18/21 17:00 01/21/21 08:55 Calcium/Vitamin D 500 Mg Tablet PO 500 mg BID CLAY Administration Dextrose 12.5 gm 01/18/21 11:41 Dextrose 50% 25 Gm/50 Ml Syringe IV PUSH PRN PRN Hypoglycemia Protocol Ferrous Sulfate 324 mg 01/20/21 08:00 01/21/21 08:55 Ferrous Sulfate 324 Mg Tablet PO 324 mg DAILY@0800 CLAY Administration Furosemide 40 mg 01/20/21 17:00 01/21/21 08:55 Furosemide Inj 40
[2021-01-21 12:04] LABS: Glucose Point of Care 130 mg/dl (65-105)
[2021-01-21] MEDS: BISACODYL 5 MG TABLET EC 10 MG PO ×3 (12:35→21:24)
[2021-01-21] MEDS: polyethylene glycoL 3350 238 GM BOTTLE PO (12:36)
[2021-01-21] MEDS: SIMETHICONE 80 MG TAB.CHEW 160 MG PO ×3 (12:36→21:25)
--- NOTE | 2021-01-21 13:46 | PCPTNOTE ---
Flavia declined PT at this time due to starting bowel prep for colonoscopy. PT will continue to follow per plan of care.
--- NOTE | 2021-01-21 14:24 | PM.IMPN ---
Progress Note: A&P Assessment and Plan (1) Acute UTI: Code(s): N39.0 - Urinary tract infection, site not specified Status: Acute Assessment and Plan: Presented with new onset incontinence. Urine culture with growth of >100k E. coli. Continue IV Ceftriaxone, started on 01/17/21. Will plan to complete 7 days of antibiotic therapy. Crockett catheter was initiated at presentation due to incontinence in setting of groin maceration. (2) Hyperthermia: Code(s): R50.9 - Fever, unspecified Status: Acute Assessment and Plan: She developed fever with T-max 101.8?. Low-grade fever last night at 99.8?. Likely related to UTI as above. No leukocytosis. blood cultures pending. acetaminophen available as needed for fever (3) Anemia: Qualifiers: Anemia type: unspecified type Qualified Code(s): D64.9 - Anemia, unspecified Code(s): D64.9 - Anemia, unspecified Status: Acute Assessment and Plan: Appears acute on chronic.Iron panel consistent with iron deficiency anemia. B12 and folate within normal limits. Hemoglobin dropped to 6.9 yesterday and she required transfusion 1 unit pRBC. Hgb 7.9 today. Monitor H&H closely. Transfuse as needed with goal hemoglobin >7.0. Repeat this afternoon to ensure remaining stable following transfusion GI has been consulted and input is appreciated Planning for EGD and colonoscopy tomorrow to evaluate for GI bleed in setting of chronic anticoagulation. Stool occult blood test has been ordered; awaiting specimen for collection Continue oral iron supplementation. (4) Chronic hypoxemic respiratory failure: Code(s): J96.11 - Chronic respiratory failure with hypoxia Status: Acute Assessment and Plan: Likely secondary to COPD and SWATI. She is on chronic 2 L supplemental O2 at home. Currently maintaining adequate oxygen saturations on her usual 2 L continue supplemental O2 with goal saturation 90% or above. continue bronchodilators prn Nighttime O2 3 L. (5) CHF (congestive heart failure): Qualifiers: Heart failure type: combined systolic and diastolic Heart failure chronicity: acute on chronic Qualified Code(s): I50.43 - Acute on chronic combined systolic (congestive) and diastolic (congestive) heart failure Code(s): I50.9 - Heart failure, unspecified Status: Acute Assessment and Plan: CXR showed cardiomegaly with pulmonary edema. BNP elevated at 1320. She is diuresing well. Continue IV lasix 40 mg BID; monitoring renal function closely Monitor intake and output, daily weights Heart healthy diet. Echo has been ordered and is pending. (6) Chronic kidney disease, stage 3 (moderate): Qualifiers: Chronic kidney disease stage 3 subtype: stage 3b (GFR 30-44) Qualified Code(s): N18.32 - Chronic kidney disease, stage 3b Code(s): N18.3 - Chronic kidney disease, stage 3 (moderate) Status: Acute Assessment and Plan: Baseline appears to be around 1.4-1.5. Renal function has actually been improved from baseline, which may be due to hypervolemia. Monitor renal function closely especially with diuresis. Renally dose medications and avoid nephrotoxins. (7) Type 2 diabetes mellitus without complications: Qualifiers: Diabetes mellitus manager long term care insulin use: with fpc use Qualified Code(s): E11.9 - Type 2 diabetes mellitus without complications; Z79.4 - [facility] (current) use of insulin Code(s): E11.9 - Type 2 diabetes mellitus without complications Status: Acute Assessment and Plan: blood sugars have been generally well controlled. Continue Accu-Cheks, sliding scale insulin, and hypoglycemic protocol continue home Lantus, 85 units qHS check updated A1c (8) Chronic anticoagulation: Code(s): Z79.01 - intermodal customer service (current) use of anticoagulants Status: Acute Asses
[2021-01-21 15:44] LABS: Hematocrit 26.6 % (37.0-47.0); Hemoglobin 7.9 g/dL (12.0-15.0)
[2021-01-21 18:37] LABS: Glucose Point of Care 147 mg/dl (65-105)
[2021-01-21 22:28] LABS: Glucose Point of Care 181 mg/dl (65-105)
[2021-01-22] VITALS (12 sets, daily range): BP systolic 80–140; BP diastolic 30–80; PULSE 60–77; RESP 18–22; TEMP 36.3–37.2; O2SAT 92–100
--- NOTE | 2021-01-22 | ECHO_ITS ---
Patient Info Name: Anna Greer Age: 70 years : 1950 Gender: Female Ht: 64 in Wt: 375 lbs BSA: 2.89 m2 HR: 71 bpm BP: 137 / 40 mmHg Technical Quality: Poor Exam Date: 01/22/2021 8:51 AM Exam Location: [facility] Patient Status: Inpatient Admit Date: 01/18/2021 Staff Ordering Physician: Kaden Scanlon Tripe Washer: PATTY Attending Provider: Dianelys Nuñez PA-C Referring Physician: Capo MCCOY; Exam Type: CA echo dop color flow w con Study Info Indications - HYPERVOLUMIA Complete two-dimensional, color flow and Doppler transthoracic echocardiogram is performed with contrast to opacify the left ventricle and to improve the deliniation of the left ventricle endocardial borders. Contrast/Agitated Saline Contrast/Ag. Saline: Definity Amount: 2.00 ml Administered By: Hali Tobin RN Existing IV Access: Yes IV Access Condition: patent with no signs of infiltration Reason for Poor Study: patient body habitus Summary 1. Technically suboptimal study due to poor sonographic images. 2. Definity contrast administered improved wall motion interpretation. 3. Left ventricular chamber dimension is normal. 4. Left ventricular systolic function is normal, estimated at 60-65%. 5. There is moderately increased left ventricular wall thickness. 6. The left ventricular diastolic function is grade I diastolic dysfunction. 7. E/e' 14 is mildly elevated. 8. Left atrial chamber dimension is mildly enlarged. 9. There is mild aortic valve sclerosis. 10. The mitral valve has severely calcified posterior annulus. 11. There is trivial pericardial effusion. Left Ventricle E/e' 14 is mildly elevated. Definity contrast administered improved wall motion interpretation. Technically suboptimal study due to poor sonographic images. Left ventricular chamber dimension is normal. Left ventricular systolic function is normal, estimated at 60-65%. There is moderately increased left ventricular wall thickness. The left ventricular diastolic function is grade I diastolic dysfunction. Right Ventricle Right ventricular systolic function is normal based on a normal TAPSE 2.8 cm. Right ventricular chamber dimension is not well visualized. Left Atria Left atrial chamber dimension is mildly enlarged. Right Atria Right atrial chamber dimension is not well visualized. Aortic Valve The aortic valve is trileaflet. There is mild aortic valve sclerosis. There is no aortic valve stenosis. There is no aortic valve regurgitation. Pulmonic Valve There is no pulmonic regurgitation. Mitral Valve The mitral valve has severely calcified posterior annulus. There is no mitral valve stenosis. There is no mitral valve regurgitation. Tricuspid Valve There is no tricuspid valve regurgitation. Pericardium/Pleural There is trivial pericardial effusion. Inferior Vena Cava Normal inferior vena cava with >50% collapse upon inspiration consistent with normal right atrial pressure, 5 mmHg. Aorta The aortic root size at the sinus of Valsalva is not well visualized. Left Ventricular Outflow Tract Name Value Normal LVOT 2D LVOT Diameter 1.93
[2021-01-22] MEDS: ACETAMINOPHEN 500 MG TABLET 1000 MG PO (00:07)
--- NOTE | 2021-01-22 05:22 | PC.NURSE ---
patient NPO since 00:00, having incontinent dark green liquid stools at this time
[2021-01-22 06:09] LABS: Hematocrit 25.9 % (37.0-47.0); Hemoglobin 7.7 g/dL (12.0-15.0); Mean Corpuscular HGB Conc 29.7 g/dl (32-36); Mean Corpuscular Hemoglobin 28.2 pg (26-34); Mean Corpuscular Volume 94.9 fl (80-100); Mean Platelet Volume 9.8 fl (7.4-10.4); Platelet Count Result 267 k/mm3 (150-375); Red Blood Count 2.73 M/mm3 (4.2-5.4); Red Cell Distribution Width 15.4 % (11.5-14.5); White Blood Count 8.5 K/mm3 (4.5-10.0)
[2021-01-22 06:19] LABS: INR 1.3; Prothrombin Time 16.5 Seconds (11.1-14.7)
[2021-01-22 06:22] LABS: Anion Gap 8 mmol/L (8-16); Blood Urea Nitrogen 24 mg/dL (7-17); Calcium 8.5 mg/dL (8.4-10.2); Carbon Dioxide 30 mmol/L (22-30); Chloride 97 mmol/L (98-107); Estimated CRCL calculation 56 ml/min; Estimated Glomerular Filt Rate 40; Glucose 134 mg/dL (65-105); Sodium 135 mmol/L (137-145)
[2021-01-22 06:26] LABS: Hemoglobin A1C 5.4 % (<5.7)
[2021-01-22] MEDS: SILVERGEL (ELTA) 45 ML 1 APPLIC TOPICAL (08:21)
[2021-01-22 09:02] LABS: Glucose Point of Care 124 mg/dl (65-105)
[2021-01-22] MEDS: PERFLUTREN LIPID MICROSPHERES 1.5 ML VIAL DILUTED TO 10 ML TOTAL VOLUME IV PUSH (09:22)
--- NOTE | 2021-01-22 11:21 | PM.IMPN ---
Progress Note: A&P Assessment and Plan (1) Acute UTI: Code(s): N39.0 - Urinary tract infection, site not specified Status: Acute Assessment and Plan: Presented with new onset incontinence. Urine culture with growth of >100k E. coli. Continue IV Ceftriaxone, started on 01/17/21. Will plan to complete 7 days of antibiotic therapy. Crockett catheter was initiated at presentation due to incontinence in setting of groin maceration. Plan to complete voiding trial prior to discharge. (2) Hyperthermia: Code(s): R50.9 - Fever, unspecified Status: Acute Assessment and Plan: She developed fever with T-max 101.8? but has been afebrile >36 hours. Likely related to UTI as above. No leukocytosis. blood cultures pending; negative to date acetaminophen available as needed for fever (3) Anemia: Qualifiers: Anemia type: unspecified type Qualified Code(s): D64.9 - Anemia, unspecified Code(s): D64.9 - Anemia, unspecified Status: Acute Assessment and Plan: Appears acute on chronic.Iron panel consistent with iron deficiency anemia. B12 and folate within normal limits. Hemoglobin dropped to 6.9 and she had transfusion 1 unit pRBC on 01/20. Hgb 7.7 today. Vital signs are stable and there is no evidence of active bleeding. Monitor H&H closely. Transfuse as needed with goal hemoglobin >7.0. Repeat this afternoon to ensure remaining stable GI has been consulted and input is appreciated Planning for EGD and colonoscopy today to evaluate for GI bleed in setting of chronic anticoagulation. Stool occult blood test has been ordered but uncollected Will plan for IV iron infusion following colonoscopy/EGD Continue protonix bid Begin B12 supplementation as vitamin b12 levels are on low end of normal (4) Chronic hypoxemic respiratory failure: Code(s): J96.11 - Chronic respiratory failure with hypoxia Status: Acute Assessment and Plan: Likely secondary to COPD and SWATI. She is on chronic 2 L supplemental O2 at home. Currently Requiring 3 L supplemental O2 continue supplemental O2 with goal saturation 90% or above. Wean as tolerated to day time goal of 2 L continue bronchodilators prn Nighttime O2 3 L. (5) CHF (congestive heart failure): Qualifiers: Heart failure type: combined systolic and diastolic Heart failure chronicity: acute on chronic Qualified Code(s): I50.43 - Acute on chronic combined systolic (congestive) and diastolic (congestive) heart failure Code(s): I50.9 - Heart failure, unspecified Status: Acute Assessment and Plan: CXR showed cardiomegaly with pulmonary edema. BNP elevated at 1320. She is diuresing well. Discontinue IV Lasix and transition to 40 mg PO daily, monitoring renal function closely Monitor intake and output, daily weights Heart healthy diet. Echo has been ordered and is pending. (6) Chronic kidney disease, stage 3 (moderate): Qualifiers: Chronic kidney disease stage 3 subtype: stage 3b (GFR 30-44) Qualified Code(s): N18.32 - Chronic kidney disease, stage 3b Code(s): N18.3 - Chronic kidney disease, stage 3 (moderate) Status: Acute Assessment and Plan: Baseline appears to be around 1.4-1.5. Renal function has actually been improved from baseline, which may be due to hypervolemia. Cr 1.3 today. Monitor renal function closely especially with diuresis. Renally dose medications and avoid nephrotoxins. (7) Type 2 diabetes mellitus without complications: Qualifiers: Diabetes mellitus nursing home insulin use: with nursing home use Qualified Code(s): E11.9 - Type 2 diabetes mellitus without complications; Z79.4 - superintendent terminal (current) use of insulin Code(s): E11.9 - Type 2 diabetes mellitus without complications Status: Acute Assessment and Plan: A1c is 5.4. Blood sugars have been generally well controlled.
--- NOTE | 2021-01-22 11:45 | PCPTNOTE ---
The patient treatment was not able to be completed due patient unavailable. Will plan to continue treatment per plan of care.
[2021-01-22 12:30] LABS: Glucose Point of Care 129 mg/dl (65-105)
--- NOTE | 2021-01-22 12:32 | WPDANESEPPF ---
Anes - Initial Pre Proc Eval Procedure: Operation Date: 01/22/21 13:00 Proposed Procedures p Esophagogastroduodenoscopy & Colonoscopy - George TranAbram Harvey DO Date/Time: 01/22/21 12:32 Surgeon: Dianelys Nuñez PA-C Pre Op Diagnosis: UTI-failed outpatient treatment, anemia Patient Data Age: 70 Gender: F Height: 1.63 m Weight: 170.5 kg Last Vital Signs Temp 37.2 C 01/22/21 06:00 Pulse 64 01/22/21 06:00 Resp 18 01/22/21 06:00 BP 128/42 L 01/22/21 06:00 Pulse Ox 94 01/22/21 08:00 Allergies Allergy/AdvReac Type Severity Reaction Status Date / Time heparin Allergy Unknown Itching Verified 01/22/21 12:23 Heparin Analogues Allergy Unknown Itching Verified 01/22/21 12:23 Iodinated Contrast Media Allergy Unknown Rash Verified 01/22/21 12:23 iodine Allergy Unknown Rash Verified 01/22/21 12:23 morphine Allergy Unknown Itching Verified 01/22/21 12:23 Home Medications Medication Instructions Recorded Confirmed Type ascorbic acid (vitamin C) [Vitamin 500 mg PO BID 05/27/19 01/17/21 History C] calcium carbonate-vitamin D3 1 tablet PO BID 05/27/19 01/17/21 History [Os-Zbigniew 500 + D3] fluticasone propionate 50 See Rx Instructions .ROUTE 03/09/20 01/17/21 Rx mcg/actuation nasal .COMPLEX #48 gram spray,suspension albuterol sulfate 90 mcg/actuation 2 puff INHALATION QID PRN #8.5 g 07/07/20 01/17/21 Rx aerosol inhaler warfarin 3 mg tablet 3 mg PO DAILY #30 tablet 09/06/20 01/17/21 Rx esomeprazole magnesium 40 mg 40 mg PO DAILY #90 cap 09/26/20 01/17/21 Rx capsule,delayed release insulin lispro 100 unit/mL See Rx Instructions SUB-Q TID 90 11/22/20 01/17/21 Rx subcutaneous pen Days #110 ml ipratropium 20 mcg-albuterol 100 1 puff INHALATION QID PRN #4 g 11/28/20 01/17/21 Rx mcg/actuation mist for inhalation insulin glargine 100 unit/mL 85 unit SUBCUT QPM #30 ml 12/27/20 01/17/21 Rx subcutaneous solution atorvastatin 20 mg tablet 20 mg PO DAILY #90 tablet 01/03/21 01/17/21 Rx furosemide 20 mg tablet 60 mg PO BID #540 tablet 01/03/21 01/17/21 Rx levothyroxine 25 mcg tablet 25 mcg PO DAILY #90 tablet 01/03/21 01/17/21 Rx lisinopril 5 mg tablet 5 mg PO DAILY #90 tablet 01/03/21 01/17/21 Rx metoprolol tartrate 50 mg tablet 50 mg PO Q12H #180 tablet 01/03/21 01/17/21 Rx acetaminophen 1,000 mg PO BID PRN 01/17/21 01/17/21 History penicillin V potassium 500 mg PO BID 01/17/21 01/17/21 History potassium chloride [Klor-Con M20] 20 meq PO DAILY 01/17/21 01/17/21 History Laboratory Tests 01/21/21 01/21/21 01/21/21 15:17 18:18 21:19 WBC RBC Hgb 7.9 g/dL L g/dL (12.0-15.0) Hct 26.6 % L % (37.0-47.0) MCV MCH MCHC RDW Plt Count MPV PT INR Sodium Potassium Chloride Carbon Dioxide Anion Gap BUN Creatinine Estim Creat Clear Calc Estimated GFR Glucose POC Capillary Glucose 147 mg/dl H mg/dl 181 mg/dl H mg/dl (65-105) (65-105) Hemoglobin A1c Calcium 01/22/21 01/22/21 01/22/21 05:37 05:37 05:37 WBC 8.5 K/mm3 K/mm3 (4.5-10.0) RBC 2.73 M/mm3 L M/mm3 (4.2-5.4) Hgb 7.7 g/dL L g/dL (12.0-15.0) Hct 25.9 % L % (37.0-47.0) MCV 94.9 fl fl (80-100) MCH 28.2 pg pg (26-34) MCHC 29.7 g/dl L g/dl (32-36) RDW 15.4 % H % (11.5-14.5) Plt Count 267 k/mm3 k/mm3 (150-375) MPV 9.8 fl fl (7.4-10.4) PT INR Sodium 135 mmol/L L mmol/L (137-145) Potassium 4.0 mmol/L mmol/L (3.4-5.0) Chloride 97 mmol/L L mmol/L (98-107) Carbon Dioxide 30 mmol/L mmol/L (22-30) Anion Gap 8 mmol/L mmol/L (8-16) BUN 24 mg/dL H mg/
[2021-01-22] MEDS: LACTATED RINGERS 1,000 ML 150 ML IV CONT (12:51)
--- NOTE | 2021-01-22 13:40 | WPDHPUPDATE1 ---
History and Physical Update Update Date/Time: 01/22/21 13:40 History and Physical has been reviewed, including an updated exam of the patient. There are NO changes in the patient's condition. Risks, benefits, and alternatives have been discussed and questions answered. Patient agrees to proceed with procedure.
[2021-01-22] MEDS: BENZOCAINE (*SP) 60 ML SPRAY CAN (HURRICAINE) 1 SPRAY MUCOUS MEM (13:41)
--- NOTE | 2021-01-22 14:01 | SUR.OPER ---
Ulcers, GENARO, seen on lower buttocks
--- NOTE | 2021-01-22 14:33 | PCPTNOTE ---
The patient treatment was not able to be completed due to patient out of room for colonoscopy. Will plan to continue treatment per plan of care.
[2021-01-22 15:02] LABS: Glucose Point of Care 127 mg/dl (65-105)
[2021-01-22] MEDS: HYDROcodone/acetaminophen (*CRX) 5-325 MG TABLET 1 TAB PO ×2 (15:30→23:17)
[2021-01-22] MEDS: ASCORBIC ACID 500 MG TABLET PO ×2 (16:27→17:50)
[2021-01-22] MEDS: FERROUS SULFATE 324 MG TABLET PO (16:27)
[2021-01-22] MEDS: METOPROLOL TARTRATE 50 MG TAB PO ×2 (16:27→20:41)
[2021-01-22] MEDS: PANTOPRAZOLE 40 MG TABLET PO ×2 (16:27→20:41)
[2021-01-22] MEDS: ATORVASTATIN 20 MG TABLET PO (16:27)
[2021-01-22] MEDS: CYANOCOBALAMIN 1,000 MCG TABLET 1000 MCG PO (16:27)
[2021-01-22] MEDS: FUROSEMIDE INJ 40 MG/4 ML VIAL IV PUSH (16:28)
[2021-01-22 16:59] LABS: Hematocrit 27.5 % (37.0-47.0); Hemoglobin 8.2 g/dL (12.0-15.0)
[2021-01-22 17:43] LABS: Glucose Point of Care 153 mg/dl (65-105)
[2021-01-22] MEDS: INSULIN GLARGINE (*BKC) 100 UNITS/ML 85 UNITS SUB-Q (20:41)
[2021-01-22 21:18] LABS: Glucose Point of Care 214 mg/dl (65-105)
[2021-01-23 01:50] VITALS: O2SAT 95
[2021-01-23] MEDS: LEVOTHYROXINE SODIUM 25 MCG TABLET PO (05:35)
[2021-01-23 05:52] VITALS: BP 141/50; PULSE 70; RESP 18; TEMP 36.8; O2SAT 96
[2021-01-23 06:27] LABS: Hematocrit 27.4 % (37.0-47.0); Mean Corpuscular HGB Conc 29.2 g/dl (32-36); Mean Corpuscular Hemoglobin 28.3 pg (26-34); Mean Corpuscular Volume 96.8 fl (80-100); Mean Platelet Volume 9.5 fl (7.4-10.4); Platelet Count Result 266 k/mm3 (150-375); Red Blood Count 2.83 M/mm3 (4.2-5.4); Red Cell Distribution Width 15.4 % (11.5-14.5); White Blood Count 6.9 K/mm3 (4.5-10.0)
[2021-01-23 06:42] LABS: Anion Gap 9 mmol/L (8-16); Blood Urea Nitrogen 23 mg/dL (7-17); Calcium 8.7 mg/dL (8.4-10.2); Carbon Dioxide 28 mmol/L (22-30); Chloride 98 mmol/L (98-107); Estimated CRCL calculation 56 ml/min; Estimated Glomerular Filt Rate 40; Glucose 120 mg/dL (65-105); Potassium 3.9 mmol/L (3.4-5.0); Sodium 135 mmol/L (137-145)
[2021-01-23 07:26] LABS: INR 1.4; Prothrombin Time 17.3 Seconds (11.1-14.7)
[2021-01-23 07:40] LABS: Glucose Point of Care 135 mg/dl (65-105)
[2021-01-23 08:00] VITALS: PULSE 64; RESP 18; O2SAT 96
--- NOTE | 2021-01-23 08:05 | WPDANESPN ---
Anes - Prog Note Post-Op Date/Time: 01/23/21 08:05 Cardiovascular status: normal Respiratory status: normal Airway patency: baseline Mental status: baseline Post-Op hydration status: normal Vital Signs: Last Vital Signs Temp 98.2 F 01/23/21 05:52 Pulse 70 01/23/21 05:52 Resp 18 01/23/21 05:52 BP 141/50 H 01/23/21 05:52 Pulse Ox 96 01/23/21 05:52 Pain Score (VAS): 0 I/O: Intake & Output 01/22/21 01/23/21 01/23/21 23:59 07:59 15:59 Intake Total 50 1000 Output Total 1550 750 Balance -1500 250 Laboratory Tests 01/23/21 05:44 01/23/21 05:44 01/22/21 01/22/21 01/22/21 08:27 12:26 14:59 WBC RBC Hgb Hct MCV MCH MCHC RDW Plt Count MPV PT INR Sodium Potassium Chloride Carbon Dioxide Anion Gap BUN Creatinine Estim Creat Clear Calc Estimated GFR Glucose POC Capillary Glucose 124 H 129 H 127 H Calcium 01/22/21 01/22/21 01/22/21 16:53 17:38 20:41 WBC RBC Hgb 8.2 L Hct 27.5 L MCV MCH MCHC RDW Plt Count MPV PT INR Sodium Potassium Chloride Carbon Dioxide Anion Gap BUN Creatinine Estim Creat Clear Calc Estimated GFR Glucose POC Capillary Glucose 153 H 214 H Calcium 01/23/21 01/23/21 01/23/21 05:44 05:44 05:44 WBC 6.9 RBC 2.83 L Hgb 8.0 L Hct 27.4 L MCV 96.8 MCH 28.3 MCHC 29.2 L RDW 15.4 H Plt Count 266 MPV 9.5 PT 17.3 H INR 1.4 Sodium 135 L Potassium 3.9 Chloride 98 Carbon Dioxide 28 Anion Gap 9 BUN 23 H Creatinine 1.30 H Estim Creat Clear Calc 56 Estimated GFR 40 L Glucose 120 H POC Capillary Glucose Calcium 8.7 01/23/21 07:36 WBC RBC Hgb Hct MCV MCH MCHC RDW Plt Count MPV PT INR Sodium Potassium Chloride Carbon Dioxide Anion Gap BUN Creatinine Estim Creat Clear Calc Estimated GFR Glucose POC Capillary Glucose 135 H Calcium Microbiology 01/20/21 17:45 Blood Blood Culture - Preliminary 01/20/21 17:45 Blood Blood Culture - Preliminary Patient Feedback: Patient satisfied with anesthetic care.
[2021-01-23 10:17] VITALS: PULSE 64
[2021-01-23] MEDS: FUROSEMIDE 40 MG TABLET PO (10:17)
[2021-01-23] MEDS: ATORVASTATIN 20 MG TABLET PO (10:17)
[2021-01-23] MEDS: FERROUS SULFATE 324 MG TABLET PO (10:17)
[2021-01-23] MEDS: METOPROLOL TARTRATE 50 MG TAB PO (10:17)
[2021-01-23] MEDS: lisinopriL 5 MG TABLET PO (10:18)
[2021-01-23] MEDS: polyethylene glycoL 3350 17 GM POWD.PACK PO (10:18)
[2021-01-23] MEDS: ASCORBIC ACID 500 MG TABLET PO (10:18)
[2021-01-23] MEDS: PANTOPRAZOLE 40 MG TABLET PO (10:18)
[2021-01-23] MEDS: SILVERGEL (ELTA) 45 ML 1 APPLIC TOPICAL (10:19)
[2021-01-23] MEDS: IRON SUCROSE COMPLEX 200 MG in SODIUM CHLORIDE 0.9% IV 50 ML 120 MG IVPB (10:19)
[2021-01-23] MEDS: ACETAMINOPHEN 500 MG TABLET 1000 MG PO (10:21)
[2021-01-23] MEDS: CYANOCOBALAMIN 1,000 MCG TABLET 1000 MCG PO (10:29)
[2021-01-23 12:55] LABS: Glucose Point of Care 144 mg/dl (65-105)
--- NOTE | 2021-01-23 13:12 | PM.DS ---
DS: Admitting Diagnosis Admitting Diagnosis Admitting Diagnosis: UTI DS: Discharge Diagnosis Discharge Diagnosis (1) Acute UTI: Code(s): N39.0 - Urinary tract infection, site not specified Status: Acute Assessment and Plan: Presented with new onset incontinence. Urine culture with growth of >100k E. coli. She completed 7 days of IV Ceftriaxone. (2) Hyperthermia: Code(s): R50.9 - Fever, unspecified Status: Acute Assessment and Plan: She developed fever with T-max 101.8? but remained afebrile for >72 hours. Likely related to UTI as above. No leukocytosis. Blood cultures negative. (3) Anemia: Qualifiers: Anemia type: unspecified type Qualified Code(s): D64.9 - Anemia, unspecified Code(s): D64.9 - Anemia, unspecified Status: Acute Assessment and Plan: Acute on chronic. Iron panel consistent with iron deficiency anemia. Hemoglobin dropped to 6.9 and she was transfused 1 unit pRBC on 01/20. She underwent EGD and colonoscopy on 01/22/[address] Harvey which showed only mild gastritis with no etiology for anemia. She received IV iron infusion and will continue PO iron supplementation. B12 supplementation also initiated as B12 levels on low end of normal. She will follow up with GI and consider capsule endoscopy and also has been recommended to follow up with Hematology. (4) Chronic hypoxemic respiratory failure: Code(s): J96.11 - Chronic respiratory failure with hypoxia Status: Acute Assessment and Plan: Likely secondary to COPD and SWATI. She is on chronic 2 L supplemental O2 at home and 3L at night. (5) CHF (congestive heart failure): Qualifiers: Heart failure chronicity: acute on chronic Heart failure type: diastolic Qualified Code(s): I50.33 - Acute on chronic diastolic (congestive) heart failure Code(s): I50.9 - Heart failure, unspecified Status: Acute Assessment and Plan: CXR showed cardiomegaly with pulmonary edema. BNP elevated at 1320. She was diuresed with IV lasix. She is on high doses of PO lasix at home. CHF education provided. (6) Chronic kidney disease, stage 3 (moderate): Qualifiers: Chronic kidney disease stage 3 subtype: stage 3b (GFR 30-44) Qualified Code(s): N18.32 - Chronic kidney disease, stage 3b Code(s): N18.3 - Chronic kidney disease, stage 3 (moderate) Status: Acute Assessment and Plan: Baseline appears to be around 1.4-1.5. Renal function was slightly improved from baseline which may be due to hypervolemia. Remained stable. (7) Type 2 diabetes mellitus without complications: Qualifiers: Diabetes mellitus fdc insulin use: with manager long term care use Qualified Code(s): E11.9 - Type 2 diabetes mellitus without complications; Z79.4 - skilled nursing (current) use of insulin Code(s): E11.9 - Type 2 diabetes mellitus without complications Status: Acute Assessment and Plan: A1c is 5.4. Blood sugars were generally well controlled. She noted occasional lows. Given her A1c, I contacted her electrical design engineer office who recommended decreasing Lantus to 80 units HS and adjusting mealtime insulin to 25 units TID. she will need to have her meter downloaded at the electrical design engineer office for further adjustments. (8) Chronic anticoagulation: Code(s): Z79.01 - skilled nursing (current) use of anticoagulants Status: Acute Assessment and Plan: On warfarin for atrial fibrillation. Warfarin initially held in light of anemia and concerns for GI bleed, however was resumed following EGD and colonoscopy. (9) Hypothyroidism: Qualifiers: Hypothyroidism type: acquired Qualified Code(s): E03.9 - Hypothyroidism, unspecified Code(s): E03.9 - Hypothyroidism, unspecified Status: Acute Assessment and Plan: TSH is within normal limits. Continue home levothyroxine 25mcg PO daily DS: Summ
[2021-01-23 14:00] VITALS: BP 136/56; PULSE 64; RESP 20; TEMP 36.5; O2SAT 97
== END 2021-01-23 16:45 | disposition home health service (06) | DRG 843 ==
LOC: ANHED 18:00 → ANH3MEDSUR 18:58
PROVIDERS: Internal Medicine Gastroenterology; Nurse Practitioner; Admitting Provider Family Medicine; Emergency Provider Emergency Medicine; PCP Internal Medicine; Visit Provider Physician Assistant
PROC: 0DJ08ZZ Inspection of Upper Intestinal Tract, Via Natural or Artificial Opening Endoscopic (ICD-10-PCS; CPT 43235; principal; 2021-01-22 13:00)
DX: C7A.8 Other malignant neuroendocrine tumors (principal); I50.43 Acute on chronic combined systolic (congestive) and diastolic (congestive) heart failure; J96.11 Chronic respiratory failure with hypoxia; Z68.44 Body mass index [BMI] 60.0-69.9, adult; N39.0 Urinary tract infection, site not specified; B96.20 Unspecified Escherichia coli [E. coli] as the cause of diseases classified elsewhere; D50.9 Iron deficiency anemia, unspecified; E66.01 Morbid (severe) obesity due to excess calories; K31.7 Polyp of stomach and duodenum; K21.9 Gastro-esophageal reflux disease without esophagitis; K29.70 Gastritis, unspecified, without bleeding; D12.6 Benign neoplasm of colon, unspecified; K59.09 Other constipation; R50.9 Fever, unspecified; J44.9 Chronic obstructive pulmonary disease, unspecified; Z99.81 Dependence on supplemental oxygen; I25.10 Atherosclerotic heart disease of native coronary artery without angina pectoris; E11.22 Type 2 diabetes mellitus with diabetic chronic kidney disease; N18.32 Chronic kidney disease, stage 3b; E11.42 Type 2 diabetes mellitus with diabetic polyneuropathy; I48.91 Unspecified atrial fibrillation; R10.31 Right lower quadrant pain; G47.30 Sleep apnea, unspecified; E78.5 Hyperlipidemia, unspecified; Z79.01 Long term (current) use of anticoagulants; Z79.4 Long term (current) use of insulin; Z79.899 Other long term (current) drug therapy; Z86.711 Personal history of pulmonary embolism; Z87.11 Personal history of peptic ulcer disease; Z90.49 Acquired absence of other specified parts of digestive tract
CPT/HCPCS: 36415; 36430; 51701; 71045; 74176; 80048; 80053; 80061; 81001; 82607; 82728; 82746; 82948; 83036; 83540; 83550; 83615; 83690; 83735; 83880; 84443; 84466; 85014; 85018; 85025; 85027; 85046; 85610; 85730; 86850; 86900; 86901; 86920; 87040; 87077; 87081; 87086; 87088; 87186; 88305; 88342; 94002; 94003; 96365; 96367; 97110; 97116; 97161; 97165; 97530; 97535; 99285; A9270; C8929; G0378; J0131; J0696; J1756; J1815; J1940; J2370; J2704; J7050; J7120; P9016; Q9957

== ENCOUNTER 2021-02-19 14:13 | Emergency (ER) | payer MEDICARE, SELFPAY ==
--- NOTE | ~2021-02-19 | XR_ITS ---
EXAMINATION: XR hand LT min 3V DATE: 02/19/2021 14:57 INDICATION: Left hand pain, swelling and tingling TECHNIQUE: Posteroanterior, oblique and lateral views of the left hand were obtained. COMPARISON: None. FINDINGS: Diffuse osteopenia. Alignment is normal. No fracture. Polyarticular osteoarthritis, severe at the fir st carpometacarpal joint, moderate severity at the first interphalangeal and second-fourth distal int erphalangeal joints and mild at the majority the remaining joints in the left hand. No erosions or pe riosteal reaction. Diffuse soft tissue swelling about the left hand. No soft tissue gas or radiopaque foreign bodies. IMPRESSION: 1. Diffuse soft tissue swelling about the left hand. No acute osseous abnormality. 2. Polyarticular osteoarthritis, severe at the first carpometacarpal joint and otherwise mild to mode rate with distal interphalangeal predominance. 3. Diffuse osteopenia. Reviewed, dictated and finalized at location A. IMPRESSION: 1. Diffuse soft tissue swelling about the left hand. No acute osseous abnormali ty. 2. Polyarticular osteoarthritis, severe at the first carpometacarpal joint and otherwise mild to moderate with distal interphalangeal predominance. 3. Diffuse osteopenia.
[2021-02-19 14:35] VITALS: BP 133/67; PULSE 62; RESP 18; TEMP 37.1; O2SAT 100
--- NOTE | 2021-02-19 15:46 | ED.EXTPRO ---
HPI - Extremity Problem General Chief complaint: Skin/Abscess/Foreign Body Stated complaint: left hand swelling and warm to touch Time Seen by Provider: 02/19/21 14:49 Source: patient Mode of arrival: wheelchair Limitations: no limitations History of Present Illness HPI Narrative: This is a 70 year old female that presents to the ER for left hand swelling present x 4 days. Reports associated pain and warmth. Reports she had a similar episode earlier this year that was relieved with anti-inflammatories. She saw her PCP for this and looks like was referred to rheumatology. Patient reports decreased range of motion due to pain. Denies fever or erythema. Related Data Home Medications Medication Instructions Recorded Confirmed ascorbic acid (vitamin C) [Vitamin 500 mg PO BID 05/27/19 02/12/21 C] calcium carbonate-vitamin D3 1 tablet PO BID 05/27/19 02/12/21 [Os-Zbigniew 500 + D3] acetaminophen 1,000 mg PO BID PRN 01/17/21 02/12/21 penicillin V potassium 500 mg PO BID 01/17/21 02/12/21 potassium chloride [Klor-Con M20] 20 meq PO DAILY 01/17/21 02/12/21 warfarin 4 mg tablet 4 mg PO DAILY 02/06/21 02/12/21 Allergies Allergy/AdvReac Type Severity Reaction Status Date / Time heparin Allergy Unknown Itching Verified 02/19/21 16:33 Heparin Analogues Allergy Unknown Itching Verified 02/19/21 16:33 Iodinated Contrast Media Allergy Unknown Rash Verified 02/19/21 16:33 iodine Allergy Unknown Rash Verified 02/19/21 16:33 morphine Allergy Unknown Itching Verified 02/19/21 16:33 Review of Systems Review of Systems: Narrative: CONSTITUTIONAL: Denies fever SKIN: Denies rash MUSCULOSKELETAL: Reports joint pain, and myalgia. NEUROLOGIC: Reports numbness All systems reviewed & are unremarkable except as noted in HPI and below PMFSH Past Medical History Medical History Adenomatous colon polyp Afib BiPAP (biphasic positive airway pressure) dependence CAD (coronary artery disease) CHF (congestive heart failure) COPD (chronic obstructive pulmonary disease) Dependence on supplemental oxygen Dysuria HLD (hyperlipidemia) HTN (hypertension) Hx of pulmonary embolus Morbid obesity Peripheral neuropathy Pyloric channel ulcer Type 2 diabetes mellitus without complications Surgical History Surgical History H/O colonoscopy H/O esophagogastroduodenoscopy S/P IVC filter Family History Family History Mother Acute myocardial infarction Patient's mother is Family history of obesity Father Patient's father is Family history of chronic obstructive pulmonary disease, Onset Age: 70 Family history of lung disease Sibling Patient's brother is in good health Patient's brother is Patient's sister is Family history of coronary artery disease Family history of congestive heart failure Social History Social History Social History: Patient lives at home by herself with 2 cats. Patient wishes to be a full code and stated that her daughter Gabbie is the POA. She also stated at least lives in [place] and her daughter Sweetie is down here. Will have nursing add gabbie said to the contact list. Smoking status: Never smoker Second hand tobacco smoke exposure: Yes (Childhood) Alcohol intake: never Substance use: never Substance use type: does not use Additional living arrangements comments: Daughter comes over to change leg dressing every morning. She also checks on her at lunch and dinner. Gender identity (if verbalized by the patient): Female Spiritual care concerns: No Agree to blood products: Yes Exam Narrative: Exam Narrative: GENERAL: Well-appearing, obese, and in no acute distress. HEAD: Normocephalic, atraumatic. EYES: EOMI. EXTREMITIES: Normal range of
[2021-02-19] MEDS: HYDROcodone/acetaminophen (*CRX) 5-325 MG TABLET 1 TAB PO (16:02)
[2021-02-19 17:00] VITALS: BP 146/64; PULSE 58; RESP 16; O2SAT 99
[2021-02-19 17:40] LABS: Basophils Percent Auto 0.3 % (0.2-1.2); Eosinophils Absolute Auto 0.6 K/mm3 (0-0.3); Eosinophils Percent Auto 6.2 % (0-4.4); Hematocrit 30.4 % (37.0-47.0); Hemoglobin 9.2 g/dL (12.0-15.0); Immature Granulocyte Absolute 0.05 K/mm3 (0.00-0.031); Immature Granulocyte Percent A 0.5 % (0-0.5); Lymphocytes Absolute Auto 2.15 K/mm3 (0.9-3.2); Lymphocytes Percent Auto 22.3 % (18.3-44.2); Mean Corpuscular HGB Conc 30.3 g/dl (32-36); Mean Corpuscular Hemoglobin 29.1 pg (26-34); Mean Corpuscular Volume 96.2 fl (80-100); Mean Platelet Volume 9.4 fl (7.4-10.4); Monocytes Absolute Auto 0.6 K/mm3 (0.1-0.6); Monocytes Percent Auto 6.1 % (2.6-8.5); Neutrophils Absolute Auto 6.2 K/mm3 (1.3-6.7); Neutrophils Percent Auto 64.6 % (45.5-73.1); Platelet Count Result 264 k/mm3 (150-375); Red Blood Count 3.16 M/mm3 (4.2-5.4); Red Cell Distribution Width 16.3 % (11.5-14.5); White Blood Count 9.6 K/mm3 (4.5-10.0)
[2021-02-19 17:55] LABS: Anion Gap 7 mmol/L (8-16); Blood Urea Nitrogen 28 mg/dL (7-17); CRP 7.1 mg/dL (<1.0); Calcium 9.3 mg/dL (8.4-10.2); Carbon Dioxide 26 mmol/L (22-30); Chloride 103 mmol/L (98-107); Estimated CRCL calculation 50 ml/min; Estimated Glomerular Filt Rate 37; Glucose 82 mg/dL (65-110); Potassium 4.7 mmol/L (3.4-5.0); Sodium 136 mmol/L (137-145); Uric Acid 11.7 mg/dL (2.5-7.5)
[2021-02-19 18:09] LABS: Erythrocyte Sedimentation Rate > 140 mm/hr (0-20)
[2021-02-19] MEDS: COLCHICINE 0.6 MG TABLET 1.2 MG PO (19:00)
[2021-02-19 19:15] VITALS: BP 150/70; PULSE 60; RESP 16; O2SAT 97
== END 2021-02-19 19:15 | disposition home or self-care (01) ==
PROVIDERS: Physician Assistant; Emergency Provider Emergency Medicine; PCP Internal Medicine
DX: M10.9 Gout, unspecified (principal); I48.91 Unspecified atrial fibrillation; I25.10 Atherosclerotic heart disease of native coronary artery without angina pectoris; I50.9 Heart failure, unspecified; J44.9 Chronic obstructive pulmonary disease, unspecified; I11.0 Hypertensive heart disease with heart failure; E78.5 Hyperlipidemia, unspecified; Z86.711 Personal history of pulmonary embolism; E11.42 Type 2 diabetes mellitus with diabetic polyneuropathy; E66.01 Morbid (severe) obesity due to excess calories; Z68.44 Body mass index [BMI] 60.0-69.9, adult; Z79.4 Long term (current) use of insulin; Z79.01 Long term (current) use of anticoagulants; Z77.22 Contact with and (suspected) exposure to environmental tobacco smoke (acute) (chronic); M18.9 Osteoarthritis of first carpometacarpal joint, unspecified; M85.842 Other specified disorders of bone density and structure, left hand
CPT/HCPCS: 36415; 73130; 80048; 84550; 85025; 85652; 86140; 99283; A9270

== ENCOUNTER 2021-03-22 08:31 | Outpatient (CLI) | payer MEDICARE, SELFPAY ==
--- NOTE | 2021-03-22 11:00 | NEURO_ITS ---
PATIENT NUMBER: [id number] IMPRESSION: # Patient is a type 1 diabetic for 15 years. # Complains of numbness # No Carpal Tunnel Syndrome. # Bilateral median neuropathy left greater than right with abnormal needle exam. # No ulnar neuropathy Nerve Conduction Studies Anti Sensory Summary Table Stim Site NR Peak (ms) P-T Amp (?V) Site1 Site2 Delta-P (ms) Dist (cm) Uli (m/s) Left Median Anti Sensory (2-3nd Digit) NO RESPONSE Wrist NR Wrist 2-3nd Digit 14.0 Wrist NR Wrist 2-3nd Digit 14.0 Right Median Anti Sensory (2-3nd Digit) NO RESPONSE Wrist NR Wrist 2-3nd Digit 14.0 Wrist NR Wrist 2-3nd Digit 14.0 Left Radial Anti Sensory (Base 1st Digit) NO RESPONSE Wrist NR Wrist Base 1st Digit 0.0 Right Radial Anti Sensory (Base 1st Digit) Wrist 2.3 20.2 Wrist Base 1st Digit 2.3 0.0 Left Ulnar Anti Sensory (5th Digit) Wrist 2.9 11.8 Wrist 5th Digit 2.9 14.0 48 Right Ulnar Anti Sensory (5th Digit) Wrist 2.3 41.1 Wrist 5th Digit 2.3 14.0 61 Motor Summary Table Stim Site NR Onset (ms) O-P Amp (mV) Site1 Site2 Delta-0 (ms) Dist (cm) Uli (m/s) Left Median Motor (Abd Poll Brev) Wrist 3.4 1.3 Elbow Wrist 26.0 Elbow NR Right Median Motor (Abd Poll Brev) Wrist 3.8 0.5 Elbow Wrist 11.7 26.0 22 Elbow 15.5 0.3 Left Ulnar Motor (Abd Dig Minimi) Wrist 2.5 4.0 A Elbow Wrist 5.2 28.0 54 A Elbow 7.7 2.5 Right Ulnar Motor (Abd Dig Minimi) Wrist 2.3 6.0 A Elbow Wrist 4.9 28.0 57 A Elbow 7.2 5.6 F Wave Studies NR F-Lat (ms) L-R F-Lat (ms) Left Median (Mrkrs) (Abd Poll Brev) NO RESPONSE NR Right Median (Mrkrs) (Abd Poll Brev) NO RESPONSE NR Left Ulnar (Mrkrs) (Abd Dig Min) 32.89 3.83 Right Ulnar (Mrkrs) (Abd Dig Min) 29.06 3.83 EMG Side Muscle Nerve Root Ins Act Fibs Amp Dur Recrt Comment Right 1stDorInt Ulnar C8-T1 Nml Nml Nml >12ms Reduced Right PronatorTeres Median C6-7 Incr Nml Nml >12ms Reduced Right Ext Digitorum Radial (Post Int) C7-8 Nml Nml Nml >12ms Reduced Right Abd Poll Brev Median C8-T1 Nml Nml Nml >12ms Reduced Right BrachioRad Radial C5-6 Nml Nml Nml Nml Nml Right Ext Indicis Radial (Post Int) C7-8 Nml Nml Nml Nml Nml Left 1stDorInt Ulnar C8-T1 Nml Nml Nml >12ms Reduced Left PronatorTeres Median C6-7 Nml Nml Nml >12ms Reduced Left Ext Digitorum Radial (Post Int) C7-8 Nml Nml Nml >12ms Reduced Left Abd Poll Brev Median C8-T1 Nml Nml Nml >12ms Reduced Left BrachioRad Radial C5-6 Nml Nml Nml Nml Nml Left Ext Indicis Radial (Post Int) C7-8 Nml Nml Nml Nml Nml MTDD
== END 2021-03-22 08:32 | disposition home or self-care (01) ==
PROVIDERS: PCP Internal Medicine; Visit Provider Internal Medicine
DX: R20.2 Paresthesia of skin (principal)
CPT/HCPCS: 95886; 95911

== ENCOUNTER 2021-08-13 08:40 | Outpatient (RCR) | payer MEDICARE, SELFPAY ==
[2021-08-13 09:29] VITALS: BMI 61.0
== END 2021-10-19 12:24 | disposition home or self-care (01) ==
LOC: ANHWOC 08:40
PROVIDERS: PCP Internal Medicine; Visit Provider Internal Medicine
DX: L89.150 Pressure ulcer of sacral region, unstageable (principal)
CPT/HCPCS: 99212; G0463

== ENCOUNTER 2021-08-21 17:08 | Inpatient (IN) | payer MEDICARE, SELFPAY ==
--- NOTE | 2021-08-20 09:25 | PC.NURSE ---
Report to the Outpatient Waiting Room, entrance under the green pavilion located off [facility], at time __10:00AM on date _08/21/21 . OR Time: _12:00PM . - You and your visitor will be asked a series of questions to screen for COVID 19 for your protection. - A mask is required within the hospital. - Only one visitor is allowed at this time. Patient visitors will be guided where to wait when not with patient. Preoperative COVID Testing Requirements: No COVID Test needed if: (proof is required; if not received patient will have Rapid Test prior to entry) - Patient has received COVID Vaccine at least 14 days prior to procedure date or - Patient has positive COVID test result within last 90 days of surgery date. COVID Test needed if above criteria is not met If not COVID vaccinated a COVID test must be conducted within 72 hours of surgery and patient is asked to isolate self from time of testing until procedure. You will go to the [facility] for your COVID testing. The [facility] is located at the corner of [address] [facility]. You will only be called if COVID results are positive and your surgeon may reschedule your elective surgery date. Patients may have clear liquids (water, carbonated beverages, clear teas, apple juice) until 3 hours prior to surgery with a maximum of 20 ounces. - No food from midnight until time of surgery - Infants may have breast milk until 4 hours before surgery, formula 6 hours prior to surgery. - Children will be allowed to drink immediately following surgery. If applicable, please bring a bottle or sippy cup to assist with drinking. Juice, water, soda, and popsicles are readily available. For infants on formula, please bring formula the day of surgery. Pacifiers are allowed. Take the following medications with a SIP of water the morning of surgery: ___COMBIVENT INHALER, BRING & USE ALBUTEROL INHALER NEEDED, FLONASE NASAL SPRAY,_LEVOTHYROXINE, METOPROLOL, PREDNISONE Medications to discontinue per physician WARFARIN LAST DOSE 08/18/21, ALL VITAMINS/SUPPLEMENTS 3 DAYS PRE-OP Date to take last dose____08/18/21 Please no make-up, nail turkmen, hairspray, perfume, deodorant, or body powder the day of surgery. No jewelry (including any body piercings) or valuables the day of surgery, leave them at home. Please take a shower or bath the night before, or the morning of, surgery with an antibacterial soap. Wear comfortable, loose fitting clothing. Children are encouraged to wear pajamas. - Jewelry must be removed prior to entering the operating room. Rings and piercings that are not removed may be cut off. - The hospital will not accept responsibility for valuables. - Please leave all valuables, including medications, at home the day of surgery. If you are going home after surgery, a licensed cattle driver must drive you home. - NO public transportation without another adult. - We recommend that an adult stay with you for 24 hours following discharge. - We also recommend that you do not drive, make important decision, drink alcoholic beverages, or take any drugs that were not prescribed by your health care provider for at least 24 hours after your discharge time. For Pediatric surgeries, we recommend two adults accompany the child home (only one inside the building at this time). Follow any additional instructions given to you from your surgeon. Telephone instructions given to ___PATIENT and asked if any additional questions and then verbalized understanding. Patient advised to call surgeon office or pre surgery nurse liaison [phone] if any additional questions.
[2021-08-20 09:27] VITALS: BMI 64.4
--- NOTE | 2021-08-20 15:53 | PCCCNOTE ---
Called to Dr. Khalil's office to check that IP order is correct. Per registrations notes, precert is not required for the cpt. Spoke with Sandra who confirms that IP as patient has a BMI over 6o and significant mobility issues.
[2021-08-21] VITALS (23 sets, daily range): BP systolic 100–153; BP diastolic 39–95; PULSE 56–89; RESP 13–21; TEMP 36.5–37.2; O2SAT 93–100
--- NOTE | 2021-08-21 10:07 | ECG_ITS ---
Measurements Intervals Snyder Rate: 62 P: 71 SD: 147 QRS: -8 QRSD: 97 T: 14 QT: 440 QTc: 447 Interpretive Statements SINUS RHYTHM WITH SINUS ARRHYTHMIA NORMAL ECG Electronically Signed On 08-21-2021 11:44:48 THEATRICAL VARIETY AGENT by Paulo Cruz D.O.
--- NOTE | 2021-08-21 11:06 | WPDANESEPPF ---
Anes - Initial Pre Proc Eval Procedure: Operation Date: 08/21/21 12:00 Proposed Procedures p Debridement Sacral Decubitus Ulcer - Fawad Khalil DO Date/Time: 08/21/21 11:06 Surgeon: Fawad Khalil DO Pre Op Diagnosis: unstagable sacral ulcer Patient Data Age: 71 Gender: F Height: 1.64 m Weight: 173 kg Allergies Allergy/AdvReac Type Severity Reaction Status Date / Time heparin Allergy Unknown Itching Verified 08/21/21 10:47 Iodinated Contrast Media Allergy Unknown RASH, Verified 08/21/21 10:47 ITCHING morphine Allergy Unknown Itching Verified 08/21/21 10:47 Home Medications Medication Instructions Recorded Confirmed Type ascorbic acid (vitamin C) [Vitamin 500 mg PO BID 05/27/19 08/20/21 History C] albuterol sulfate 90 mcg/actuation 2 puff INHALATION QID PRN #8.5 g 07/07/20 08/20/21 Rx aerosol inhaler ipratropium 20 mcg-albuterol 100 1 puff INHALATION QID PRN #4 g 11/28/20 08/20/21 Rx mcg/actuation mist for inhalation furosemide 20 mg tablet 60 mg PO BID #540 tablet 01/03/21 08/20/21 Rx metoprolol tartrate 50 mg tablet 50 mg PO Q12H #180 tablet 01/03/21 08/20/21 Rx acetaminophen 1,000 mg PO BID 01/17/21 08/20/21 History cyanocobalamin (vitamin B-12) 1,000 mcg PO QAM #30 tablet 01/23/21 08/20/21 Rx [Vitamin B-12] esomeprazole magnesium 40 mg 40 mg PO DAILY #90 cap 03/30/21 08/20/21 Rx capsule,delayed release warfarin 3 mg tablet 3 mg PO DAILY #30 tablet 07/11/21 08/20/21 Rx pen needle, diabetic 31 gauge x #400 ea 08/10/21 08/17/21 Rx 5/16 prednisolone 5 mg (21 tabs) 15 mg PO QAM 08/15/21 08/20/21 History tablets in a dose pack Lantus U-100 Insulin 70 unit SUBCUT QPM 08/20/21 08/20/21 History allopurinol 200 mg PO QAM 08/20/21 08/20/21 History atorvastatin [Lipitor] 20 mg PO HS 08/20/21 08/20/21 History calcium carbonate-vitamin D3 1 tablet PO BID 08/20/21 08/20/21 History [Calcium 600 + D(3)] collagenase clostridium histo. 1 applic TOPICAL DAILY 08/20/21 08/20/21 History [Santyl] fluconazole 100 mg PO EVERY OTHER DAY 08/20/21 08/20/21 History fluticasone propionate 2 spray INTRANASAL QAM 08/20/21 08/20/21 History folic acid 1 mg PO DAILY 08/20/21 08/20/21 History insulin lispro [Humalog KwikPen 20 unit SUB-Q TIDWMEAL PRN 08/20/21 08/20/21 History Insulin] levothyroxine 25 mcg PO QAM 08/20/21 08/20/21 History lisinopril 5 mg PO QAM 08/20/21 08/20/21 History methotrexate sodium 7.5 mg PO WEEKLY 08/20/21 08/20/21 History potassium chloride 20 meq PO QAM 08/20/21 08/20/21 History Patient hx anesthesia problems: none Family hx anesthesia problems: none Results Review: All pre-operative results and documents have been reviewed as part of the pre-operative evaluation. [facility] Past Medical History Medical History Adenomatous colon polyp Afib BiPAP (biphasic positive airway pressure) dependence CAD (coronary artery disease) CHF (congestive heart failure) COPD (chronic obstructive pulmonary disease) Dependence on supplemental oxygen Dysuria HLD (hyperlipidemia) HTN (hypertension) Hx of pulmonary embolus Morbid obesity Peripheral neuropathy Pyloric channel ulcer Type 2 diabetes mellitus without complications Surgical History Surgical History H/O colonoscopy H/O esophagogastroduodenoscopy S/P IVC filter Family History Family History Mother Acute myocardial infarction Patient's mother is Family history of obesity Father Patient's father is Family history of chronic obstructive pulmonary disease, Onset Age: 70 Family history of lung disease Sibling Patient's brother is in good health Patient's brother is Patient's sister is Family history of coronary artery disease Family history of congestive heart failure Social History Soc
[2021-08-21 11:15] LABS: Hematocrit 28.9 % (37.0-47.0)
[2021-08-21] MEDS: LACTATED RINGERS 1,000 ML 30 ML IV CONT (11:17)
[2021-08-21 11:20] LABS: Glucose Point of Care 102 mg/dl (65-105)
[2021-08-21 11:25] LABS: Anion Gap 7 mmol/L (8-16); Blood Urea Nitrogen 27 mg/dL (7-17); Calcium 8.6 mg/dL (8.4-10.2); Carbon Dioxide 24 mmol/L (22-30); Chloride 105 mmol/L (98-107); Estimated CRCL calculation 66 ml/min; Estimated Glomerular Filt Rate 49; Glucose 120 mg/dL (65-110); Potassium 4.7 mmol/L (3.4-5.0); Prothrombin Time 22.1 Seconds (11.1-14.7); Sodium 136 mmol/L (137-145)
[2021-08-21 11:26] LABS: Partial Thromboplastin Time 47.2 SECONDS (22.3-36.8)
--- NOTE | 2021-08-21 11:37 | WPDHPUPDATE1 ---
History and Physical Update Update Date/Time: 08/21/21 11:37 History and Physical has been reviewed, including an updated exam of the patient. There are NO changes in the patient's condition. Risks, benefits, and alternatives have been discussed and questions answered. Patient agrees to proceed with procedure.
[2021-08-21] MEDS: ceFAZolin 3 GM/D5W 100 ML 100 ML IVPB (12:11)
[2021-08-21] MEDS: SOD HYPOCHLORITE 1/4 STRENGTH 473 ML 1 APPLIC TOPICAL (12:45)
[2021-08-21] MEDS: BUPIVACAINE/EPINEPHRINE 0.5% 30 ML VIAL INFILTRATE (12:53)
[2021-08-21] MEDS: fentaNYL CITRATE INJ (*CRX) 100 MCG/2 ML VIAL 25 MCG IV PUSH ×2 (14:00→15:21)
--- NOTE | 2021-08-21 14:26 | W.PM.PROC2 ---
Procedure Note - Detailed Date of Procedure 08/21/21 Pre-op Diagnosis unstagable sacral ulcer Post-op Diagnosis other Procedure Performed Sharp excisional debridement sacral decubitus ulcer including skin, subcutaneous fat, muscle, and fascia measuring 7 cm x 5 cm Surgeon Fawad Khalil, DO Anesthesia general and local (0.5% bupivacaine with epinephrine) Indications This is a 71-year-old woman who presented with an ulcer on her sacral region that had progressed over the past month. She now has a thick surface of necrotic tissue but it is unclear how deep the ulcer goes. She is now brought in for debridement of the decubitus ulcer. Findings Sharp excisional debridement of the sacral decubitus ulcer was performed using scissors. The necrotic tissue was cut away down to healthy appearing subcutaneous tissue. This included skin, subcutaneous fat, muscle and fascia. The sacrum appeared intact and there was no evidence of osteomyelitis. The total size of the wound measured 7 cm x 5 cm. The necrotic tissue was completely excised and discarded. No specimens were obtained for pathology. Description of Procedure Procedure as well as risks, benefits, and alternatives were discussed with the patient. Written consent was obtained and placed in chart prior to procedure. Patient was brought back to surgical suite. She was placed supine on the operating table. Time-out was done to confirm patient and procedure. She was then intubated by the anesthesia department. She was then repositioned into left lateral decubitus position. Her sacral region was prepped and draped in sterile fashion using Betadine prep. 0.5% bupivacaine with epinephrine was infiltrated locally around the subcutaneous tissue. Curved Russell scissors were used to cut away the necrotic tissue. The necrotic skin, subcutaneous fat, muscle, and fascia was excised down to healthy appearing tissue. Electrocautery was used for hemostasis on some of the bleeding tissue. Most of the necrotic tissue had been adequately debrided. The underlying tissue appeared healthy and viable and the sacrum appeared intact. The wound was then packed with Dakin's soaked in Kerlix gauze, followed by fluff gauze, ABD pads, and Medipore tape. The patient was then awakened from anesthesia, extubated, and transferred to recovery. Estimated Blood Loss -20.0 Packing Yes (Dakin soaked Kerlix) Pathology none sent Complications No immediate complications Condition stable Disposition floor
[2021-08-21] MEDS: ONDANSETRON INJ 4 MG/2 ML VIAL IV PUSH (15:25)
--- NOTE | 2021-08-21 17:49 | PC.NURSE ---
Received patient from OR per surgery, IV right forearm saline locked. Report received from AYLIN Scott.
--- NOTE | 2021-08-21 18:21 | ADMGEN ---
This patient, Anna Greer, was admitted to Medical Room 253-01. Patient/family oriented to hospital policies and general routines including ID bracelet, bed and alarms, visiting hours, pain management, procedures, bathroom and other care routines, personal items, smoking policy, room service/diet, and visiting hours. Information on how to activate the Rapid Response Team has been discussed. Patient/Family are encouraged to report perceived risks to care and to ask questions if they do not understand what they are told or what they should do.
[2021-08-21 18:49] LABS: Glucose Point of Care 120 mg/dl (65-105)
--- NOTE | 2021-08-21 21:00 | PM.IMCN ---
Assessment and Plan Assessment and plan (1) Unstageable skin ulcer of sacral region: Code(s): L98.429 - Non-pressure chronic ulcer of back with unspecified severity Status: Acute (2) Neuroendocrine carcinoma: Code(s): C7A.8 - Other malignant neuroendocrine tumors Status: Acute (3) JULIANNA (iron deficiency anemia): Code(s): D50.9 - Iron deficiency anemia, unspecified Status: Acute (4) Lymphedema: Code(s): I89.0 - Lymphedema, not elsewhere classified Status: Acute (5) Hyperlipidemia: Qualifiers: Hyperlipidemia type: unspecified Qualified Code(s): E78.5 - Hyperlipidemia, unspecified Code(s): E78.5 - Hyperlipidemia, unspecified Status: Acute (6) CAD (coronary artery disease): Code(s): I25.10 - Atherosclerotic heart disease of [place] coronary artery without angina pectoris Status: Acute (7) Peripheral neuropathy: Qualifiers: Peripheral neuropathy type: polyneuropathy, unspecified Qualified Code(s): G62.9 - Polyneuropathy, unspecified Code(s): G62.9 - Polyneuropathy, unspecified Status: Acute (8) CHF (congestive heart failure): Qualifiers: Heart failure type: diastolic Heart failure chronicity: acute on chronic Qualified Code(s): I50.33 - Acute on chronic diastolic (congestive) heart failure Code(s): I50.9 - Heart failure, unspecified Status: Acute (9) Type 2 diabetes mellitus without complications: Qualifiers: Diabetes mellitus watermelon inspector insulin use: with watermelon inspector use Qualified Code(s): E11.9 - Type 2 diabetes mellitus without complications; Z79.4 - termite exterminator helper (current) use of insulin Code(s): E11.9 - Type 2 diabetes mellitus without complications Status: Acute (10) Hx of pulmonary embolus: Code(s): Z86.711 - Personal history of pulmonary embolism Status: Acute (11) Morbid obesity with BMI of 60.0-69.9, adult: Code(s): E66.01 - Morbid (severe) obesity due to excess calories; Z68.44 - Body mass index [BMI] 60.0-69.9, adult Status: Acute (12) A-fib: Qualifiers: Atrial fibrillation type: unspecified Qualified Code(s): I48.91 - Unspecified atrial fibrillation Code(s): I48.91 - Unspecified atrial fibrillation Status: Acute (13) Chronic kidney disease, stage 3 (moderate): Qualifiers: Chronic kidney disease stage 3 subtype: stage 3b (GFR 30-44) Qualified Code(s): N18.32 - Chronic kidney disease, stage 3b Code(s): N18.3 - Chronic kidney disease, stage 3 (moderate) Status: Acute (14) Hypothyroidism: Qualifiers: Hypothyroidism type: acquired Qualified Code(s): E03.9 - Hypothyroidism, unspecified Code(s): E03.9 - Hypothyroidism, unspecified Status: Acute (15) Chronic hypoxemic respiratory failure: Code(s): J96.11 - Chronic respiratory failure with hypoxia Status: Acute (16) Chronic obstructive pulmonary disease, unspecified: Qualifiers: COPD type: unspecified COPD Qualified Code(s): J44.9 - Chronic obstructive pulmonary disease, unspecified Code(s): J44.9 - Chronic obstructive pulmonary disease, unspecified Status: Acute (17) Essential (primary) hypertension: Code(s): I10 - Essential (primary) hypertension Status: Acute (18) Obstructive sleep apnea (adult) (pediatric): Code(s): G47.33 - Obstructive sleep apnea (adult) (pediatric) Status: Acute Additional Plan # stage III sacral decubitus ulcer this post excisional debridement per surgery wound care to be started from morning. After debridement received the area looked healthy per surgical note. No evidence of osteomyelitis. Sacral decubitus ulcer could be pressure related without infection. Will watch off antibiotics. Postoperatively PT OT will be ordered along with wound care. # history of congestive heart failure well compensated currently continue
[2021-08-21] MEDS: HYDROcodone/acetaminophen (*CRX) 10-325 MG TABLET 1 TAB PO (21:11)
[2021-08-21] MEDS: FUROSEMIDE 20 MG TABLET 60 MG PO (21:13)
[2021-08-21] MEDS: ATORVASTATIN 20 MG TABLET PO (21:13)
[2021-08-21] MEDS: METOPROLOL TARTRATE 50 MG TAB PO (21:13)
[2021-08-21 21:30] LABS: Glucose Point of Care 131 mg/dl (65-105)
[2021-08-21] MEDS: ACETAMINOPHEN 500 MG TABLET 1000 MG PO (22:04)
[2021-08-22] VITALS (12 sets, daily range): BP systolic 105–132; BP diastolic 42–58; PULSE 52–87; RESP 18–21; TEMP 36.2–36.6; O2SAT 94–99; BMI 57.7
[2021-08-22 05:56] LABS: Hematocrit 26.8 % (37.0-47.0); Hemoglobin 8.3 g/dL (12.0-15.0); Mean Corpuscular Hemoglobin 31.8 pg (26-34); Mean Corpuscular Volume 102.7 fl (80-100); Mean Platelet Volume 9.3 fl (7.4-10.4); Platelet Count Result 233 k/mm3 (150-375); Red Blood Count 2.61 M/mm3 (4.2-5.4); Red Cell Distribution Width 17.4 % (11.5-14.5)
[2021-08-22] MEDS: LEVOTHYROXINE SODIUM 25 MCG TABLET PO (06:00)
[2021-08-22 06:08] LABS: INR 1.8; Prothrombin Time 20.9 Seconds (11.1-14.7)
[2021-08-22 06:11] LABS: Anion Gap 4 mmol/L (8-16); Blood Urea Nitrogen 24 mg/dL (7-17); Calcium 8.5 mg/dL (8.4-10.2); Carbon Dioxide 28 mmol/L (22-30); Chloride 104 mmol/L (98-107); Estimated CRCL calculation 61 ml/min; Estimated Glomerular Filt Rate 49; Glucose 94 mg/dL (65-110); Potassium 4.5 mmol/L (3.4-5.0); Sodium 136 mmol/L (137-145)
[2021-08-22] MEDS: FLUTICASONE PROPIONATE 0.05% NA SPR 16 GM BTL (*BKC) 2 SPRAY NASAL (07:59)
[2021-08-22] MEDS: ASCORBIC ACID 500 MG TABLET PO ×2 (07:59→16:57)
[2021-08-22] MEDS: POTASSIUM CHLORIDE 20 MEQ TABLET.ER PO (07:59)
[2021-08-22] MEDS: ACETAMINOPHEN 500 MG TABLET 1000 MG PO ×2 (07:59→22:12)
[2021-08-22] MEDS: PANTOPRAZOLE 40 MG TABLET PO (07:59)
[2021-08-22] MEDS: allopurinoL 100 MG TABLET 200 MG PO (07:59)
[2021-08-22] MEDS: FUROSEMIDE 20 MG TABLET 60 MG PO ×2 (07:59→16:57)
[2021-08-22] MEDS: FLUCONAZOLE 100 MG TABLET PO (08:00)
[2021-08-22] MEDS: lisinopriL 5 MG TABLET PO (08:00)
[2021-08-22] MEDS: FOLIC ACID 1 MG TABLET PO (08:00)
[2021-08-22] MEDS: CYANOCOBALAMIN 1,000 MCG TABLET 1000 MCG PO (08:00)
[2021-08-22] MEDS: METOPROLOL TARTRATE 50 MG TAB PO ×2 (08:00→22:11)
[2021-08-22 08:22] LABS: Glucose Point of Care 83 mg/dl (65-105)
--- NOTE | 2021-08-22 09:00 | PCPTNOTE ---
Attempted PT evaluation this date, however pt declined due to eating breakfast. Will attempt at a later date/time.
--- NOTE | 2021-08-22 09:40 | PCPTNOTE ---
Attempted PT evaluation after pt was done with breakfast however pt stated that she wanted to wait until after dressing change.
[2021-08-22 11:30] LABS: Glucose Point of Care 123 mg/dl (65-105)
[2021-08-22] MEDS: HYDROcodone/acetaminophen (*CRX) 5-325 MG TABLET 1 TAB PO (11:50)
--- NOTE | 2021-08-22 13:16 | PM.IMPN ---
Progress Note: A&P Assessment and Plan (1) Unstageable skin ulcer of sacral region: Code(s): L98.429 - Non-pressure chronic ulcer of back with unspecified severity Status: Acute Assessment and Plan: # stage III sacral decubitus ulcer this post excisional debridement per surgery. After debridement received the area looked healthy per surgical note. No evidence of osteomyelitis. Sacral decubitus ulcer could be pressure related without infection. Will watch without antibiotics. #Wound care to continue need further rehabilitation for healing of the sacral decubitus ulcer. She lives alone with director agricultural services at home minimal ambulation use of wheelchair mostly and able to transfer. Will order PT OT to continue to evaluate and treat (2) Type 2 diabetes mellitus without complications: Qualifiers: Diabetes mellitus snf insulin use: with snf use Qualified Code(s): E11.9 - Type 2 diabetes mellitus without complications; Z79.4 - CHCF (current) use of insulin Code(s): E11.9 - Type 2 diabetes mellitus without complications Status: Acute Assessment and Plan: # type 2 diabetes mellitus on insulin. Continue to monitor Accu-Cheks AC and HS. Start SSI. A1c recently was 6 (3) CHF (congestive heart failure): Qualifiers: Heart failure type: diastolic Heart failure chronicity: acute on chronic Qualified Code(s): I50.33 - Acute on chronic diastolic (congestive) heart failure Code(s): I50.9 - Heart failure, unspecified Status: Acute Assessment and Plan: # history of congestive heart failure well compensated currently continue medication. Echo with EF 60-65% with grade 1 diastolic dysfunction 01/22/2021 (4) A-fib: Qualifiers: Atrial fibrillation type: unspecified Qualified Code(s): I48.91 - Unspecified atrial fibrillation Code(s): I48.91 - Unspecified atrial fibrillation Status: Acute Assessment and Plan: # atrial fibrillation on warfarin at home INR was 1.8 this morning. # spoke w/ Dr. Khalil who states Coumadin can be restarted as long as there is no significant bleeding from wound site (5) Chronic kidney disease, stage 3 (moderate): Qualifiers: Chronic kidney disease stage 3 subtype: stage 3b (GFR 30-44) Qualified Code(s): N18.32 - Chronic kidney disease, stage 3b Code(s): N18.3 - Chronic kidney disease, stage 3 (moderate) Status: Acute Assessment and Plan: # chronic kidney disease stage 3 creatinine ranges between 1-1.4 (6) Chronic hypoxemic respiratory failure: Code(s): J96.11 - Chronic respiratory failure with hypoxia Status: Acute Assessment and Plan: # chronic hypoxemic respiratory failure on home oxygen related to CHF/COPD # room air to 2L NC is baseline per patient # was on room air during my exam today (7) Chronic obstructive pulmonary disease, unspecified: Qualifiers: COPD type: unspecified COPD Qualified Code(s): J44.9 - Chronic obstructive pulmonary disease, unspecified Code(s): J44.9 - Chronic obstructive pulmonary disease, unspecified Status: Acute Assessment and Plan: # COPD on home oxygen not in exacerbation (8) Essential (primary) hypertension: Code(s): I10 - Essential (primary) hypertension Status: Acute Assessment and Plan: # continue home meds # stable (9) Obstructive sleep apnea (adult) (pediatric): Code(s): G47.33 - Obstructive sleep apnea (adult) (pediatric) Status: Acute Assessment and Plan: # SWATI on BiPAP with 4 L oxygen along with it (10) JULIANNA (iron deficiency anemia): Code(s): D50.9 - Iron deficiency anemia, unspecified Status: Acute Assessment and Plan: # chronic anemia continue to monitor hemoglobin at 9 which is about baseline Additional Plan Thank you for the consult and follow
--- NOTE | 2021-08-22 15:03 | PM.PNGS ---
Progress Note: A&P Assessment and Plan (1) Unstageable skin ulcer of sacral region: Code(s): L98.429 - Non-pressure chronic ulcer of back with unspecified severity Status: Acute Assessment and Plan: Necrotic sacral decubitus ulcer s/p excisional debridement. Still a few areas of dark jaquez tissue but overall firm wound bed and this looks better today. Will continue Dakin's soaked gauze dressing changes for local wound care I spoke with care coordination - they are working on trying to get the patient accepted to acute rehab, she is not wanting to go to a SNF. PT/OT evaluation today suggesting home with home health. Continue working on discharge planning. (2) Type 2 diabetes mellitus without complications: Qualifiers: Diabetes mellitus long term care administrator insulin use: with long term care administrator use Qualified Code(s): E11.9 - Type 2 diabetes mellitus without complications; Z79.4 - prison (current) use of insulin Code(s): E11.9 - Type 2 diabetes mellitus without complications Status: Acute Assessment and Plan: Hospitalist consulted, appreciate their help. (3) CHF (congestive heart failure): Qualifiers: Heart failure type: diastolic Heart failure chronicity: acute on chronic Qualified Code(s): I50.33 - Acute on chronic diastolic (congestive) heart failure Code(s): I50.9 - Heart failure, unspecified Status: Acute (4) A-fib: Qualifiers: Atrial fibrillation type: unspecified Qualified Code(s): I48.91 - Unspecified atrial fibrillation Code(s): I48.91 - Unspecified atrial fibrillation Status: Acute Assessment and Plan: Okay to restart warfarin (5) Chronic obstructive pulmonary disease, unspecified: Qualifiers: COPD type: unspecified COPD Qualified Code(s): J44.9 - Chronic obstructive pulmonary disease, unspecified Code(s): J44.9 - Chronic obstructive pulmonary disease, unspecified Status: Acute (6) Morbid obesity with BMI of 60.0-69.9, adult: Code(s): E66.01 - Morbid (severe) obesity due to excess calories; Z68.44 - Body mass index [BMI] 60.0-69.9, adult Status: Acute (7) Chronic hypoxemic respiratory failure: Code(s): J96.11 - Chronic respiratory failure with hypoxia Status: Acute Additional Plan I have discussed the plan of care with Dr. Khalil. Subjective Subjective Date/Time Seen: 08/22/21 14:03 Post Op day: 1 (Excisional debridement of sacral decubitus ulcer) Patient reports: no new complaints and afebrile Interval history: Patient seen and examined. She reports having some oral pain medication for her sacral area discomfort, which has helped. She is reportedly comfortable right now. No other complaints at this time. Review of Systems Review of Systems: All systems reviewed & are unremarkable except as noted in HPI and below Exam Const: General: comfortable and no acute distress Orientation/consciousness: patient oriented x3 Skin: Other: Sacral decubitus ulcer with few areas of dark jaquez dusky tissue remaining on the left side of the wound bed extending to the center at the deepest area of the wound, but wound bed is firm, still a foul odor, the remaining right side of the wound is primarily pink tissue. No bleeding open wound on right labia majora with pink healthy tissue, appears stable open wound to left thigh/buttock skin fold with healthy pink tissue, appears stable Psych: Insight: Fair insight present (Psych) Judgement: Fair judgement present (Psych) Objective Data Vital Signs Vital Signs: Vital Signs - 24 hr 08/21/21 15:10 08/21/21 15:25 08/21/21 15:45 Temperature Pulse Rate 87 68 60 Respiratory Rate 17 18 15 Blood Pressure 119/70 126/47 L 113/94 H Pulse Oximetry 99 99 100 08/21/21 16:00 08/21/21 16:20 08/21/21 16:35 Temperature Pulse Rate 70 71 62 Respiratory Rate 15 16 14 Blood Pressure 128/95 H 108/66 153/57 H Pulse Oximetry 100 100 98 01
[2021-08-22 16:40] LABS: Glucose Point of Care 130 mg/dl (65-105)
[2021-08-22] MEDS: WARFARIN (*PBKC) 3 MG TABLET PO (16:57)
[2021-08-22] MEDS: ATORVASTATIN 20 MG TABLET PO (22:12)
[2021-08-22] MEDS: HYDROcodone/acetaminophen (*CRX) 10-325 MG TABLET 1 TAB PO (22:16)
[2021-08-23 00:50] LABS: Glucose Point of Care 158 mg/dl (65-105)
[2021-08-23] MEDS: LEVOTHYROXINE SODIUM 25 MCG TABLET PO (05:56)
[2021-08-23 06:00] VITALS: BP 103/43; PULSE 61; RESP 20; TEMP 36.4; O2SAT 98
[2021-08-23 06:49] LABS: INR 1.6; Prothrombin Time 18.9 Seconds (11.1-14.7)
[2021-08-23 06:51] LABS: Basophils Percent Auto 0.2 % (0.2-1.2); Eosinophils Absolute Auto 0.3 K/mm3 (0-0.3); Eosinophils Percent Auto 2.8 % (0-4.4); Hematocrit 28.1 % (37.0-47.0); Hemoglobin 8.6 g/dL (12.0-15.0); Immature Granulocyte Absolute 0.05 K/mm3 (0.00-0.031); Immature Granulocyte Percent A 0.5 % (0-0.5); Lymphocytes Absolute Auto 2.35 K/mm3 (0.9-3.2); Lymphocytes Percent Auto 25.6 % (18.3-44.2); Mean Corpuscular HGB Conc 30.6 g/dl (32-36); Mean Corpuscular Hemoglobin 31.9 pg (26-34); Mean Corpuscular Volume 104.1 fl (80-100); Mean Platelet Volume 9.6 fl (7.4-10.4); Monocytes Absolute Auto 0.7 K/mm3 (0.1-0.6); Monocytes Percent Auto 7.2 % (2.6-8.5); Neutrophils Absolute Auto 5.9 K/mm3 (1.3-6.7); Neutrophils Percent Auto 63.7 % (45.5-73.1); Platelet Count Result 251 k/mm3 (150-375); Red Cell Distribution Width 17.5 % (11.5-14.5); White Blood Count 9.2 K/mm3 (4.5-10.0)
[2021-08-23 07:09] LABS: Anion Gap 4 mmol/L (8-16); Blood Urea Nitrogen 35 mg/dL (7-17); Calcium 8.3 mg/dL (8.4-10.2); Carbon Dioxide 29 mmol/L (22-30); Chloride 99 mmol/L (98-107); Estimated CRCL calculation 49 ml/min; Estimated Glomerular Filt Rate 37; Glucose 106 mg/dL (65-110); Potassium 4.5 mmol/L (3.4-5.0); Sodium 132 mmol/L (137-145)
[2021-08-23 07:57] VITALS: BP 122/60; PULSE 62; RESP 20; O2SAT 94
[2021-08-23 08:02] LABS: Glucose Point of Care 104 mg/dl (65-105)
[2021-08-23] MEDS: lisinopriL 5 MG TABLET PO (08:08)
[2021-08-23] MEDS: ASCORBIC ACID 500 MG TABLET PO ×2 (08:08→16:34)
[2021-08-23] MEDS: allopurinoL 100 MG TABLET 200 MG PO (08:08)
[2021-08-23] MEDS: ACETAMINOPHEN 500 MG TABLET 1000 MG PO ×2 (08:08→21:00)
[2021-08-23] MEDS: FUROSEMIDE 20 MG TABLET 60 MG PO ×2 (08:08→16:34)
[2021-08-23] MEDS: POTASSIUM CHLORIDE 20 MEQ TABLET.ER PO (08:08)
[2021-08-23] MEDS: PANTOPRAZOLE 40 MG TABLET PO (08:08)
[2021-08-23] MEDS: FOLIC ACID 1 MG TABLET PO (08:08)
[2021-08-23 08:09] VITALS: PULSE 62
[2021-08-23] MEDS: METOPROLOL TARTRATE 50 MG TAB PO ×2 (08:09→21:00)
[2021-08-23] MEDS: FLUTICASONE PROPIONATE 0.05% NA SPR 16 GM BTL (*BKC) 2 SPRAY NASAL (08:09)
[2021-08-23] MEDS: CYANOCOBALAMIN 1,000 MCG TABLET 1000 MCG PO (08:09)
[2021-08-23 11:46] LABS: Glucose Point of Care 124 mg/dl (65-105)
--- NOTE | 2021-08-23 13:20 | PM.PNGS ---
Progress Note: A&P Assessment and Plan (1) Decubitus ulcer of sacral region, stage 4: Code(s): L89.154 - Pressure ulcer of sacral region, stage 4 Status: Acute Assessment and Plan: Continue daily packing changes. Patient has frequent urinary incontinence and will likely benefit from twice daily dressing changes at least for the current time. Still waiting on determination of SNF, Acute Rehab, or Home Health. Hopefully discharge in 1-2 days if decision is made. Subjective Subjective Date/Time Seen: 08/23/21 13:20 Interval history: No new complaints. Has concerns about going to SNF but also has concerns about caring for herself at home. Exam Skin: Other: Sacral decubitus ulcer with superficial necrotic debris in base. Objective Data Vital Signs Vital Signs: Vital Signs - 24 hr 08/22/21 14:00 08/22/21 18:53 08/22/21 20:16 Temperature 36.4 C 36.4 C Pulse Rate 62 63 87 Respiratory Rate 18 18 21 H Blood Pressure 132/56 L 130/54 L Pulse Oximetry 94 95 97 08/22/21 22:00 08/22/21 22:11 08/22/21 23:55 Temperature 36.4 C Pulse Rate 68 82 80 Respiratory Rate 20 Blood Pressure 105/42 L Pulse Oximetry 95 95 08/23/21 06:00 08/23/21 07:57 08/23/21 08:09 Temperature 36.4 C Pulse Rate 61 62 62 Respiratory Rate 20 20 Blood Pressure 103/43 L 122/60 Pulse Oximetry 98 94 Intake/Output Intake/Output: Intake & Output 08/20/21 08/21/21 08/22/21 08/23/21 23:59 23:59 23:59 23:59 Intake Total 500 2550 1050 Output Total 900 2200 3100 Balance -400 350 -2050 Meds/Results Medications: Active Medications Generic Name Dose Route Start Last Admin Trade Name Freq PRN Reason Stop Dose Admin Acetaminophen 500 mg 08/21/21 17:08 Acetaminophen 500 Mg Tablet PO Q6H PRN Mild Pain (1-3) or Fever Acetaminophen 1,000 mg 08/21/21 21:00 08/23/21 08:08 Acetaminophen 500 Mg Tablet PO 1,000 mg Q12HR CLAY Administration Hydrocodone Bitart/Acetaminophen 1 tab 08/21/21 17:08 08/22/21 11:50 Hydrocodone/Acetaminophen (*Crx) 5-325 Mg Tablet PO 1 tab Q4H PRN Administration Pain Rated 4-6 Hydrocodone Bitart/Acetaminophen 1 tab 08/21/21 17:08 08/22/21 22:16 Hydrocodone/Acetaminophen (*Crx) 10-325 Mg Tablet PO 1 tab Q6H PRN Administration Pain Rated 7-10 Albuterol 2 puff 08/21/21 17:08 Albuterol Sulfate (*Sp) Aerosol 1 Puff INHALATION QID PRN Shortness Of Breath Allopurinol 200 mg 08/22/21 09:00 08/23/21 08:08 Allopurinol 100 Mg Tablet PO 200 mg QAM CLAY Administration Ascorbic Acid 500 mg 08/22/21 09:00 08/23/21 08:08 Ascorbic Acid 500 Mg Tablet PO 500 mg BID CLAY Administration Atorvastatin Calcium 20 mg 08/21/21 21:00 08/22/21 22:12 Atorvastatin 20 Mg Tablet PO 20 mg HS CLAY Administration Cyanocobalamin 1,000 mcg 08/22/21 09:00 08/23/21 08:09 Cyanocobalamin 1,000 Mcg Tablet PO 1,000 mcg QAM CLAY Administration Dextrose 12.5 gm 08/21/21 21:17 Dextrose 50% 25 Gm/50 Ml Syringe IV PUSH PRN PRN Hypoglycemia Protocol Fluconazole 100 mg 08/22/21 09:00 08/22/21 08:00 Fluconazole 100 Mg Tablet PO 100 mg Q48H CLAY Administration Fluticasone Propionate 2 spray 08/22/21 09:00 08/23/21 08:09 Fluticasone Propionate 0.05% Na Spr 16 Gm Btl (*Bkc) NASAL 2 spray QAM CLAY Administration Folic Acid 1 mg 08/22/21 09:00 08/23/21 08:08 Folic Acid 1 Mg Tablet PO 1 mg DAILY CLAY Administration Furosemide 60 mg 08/21/21 17:08 08/23/21 08:08 Furosemide 20 Mg Tablet PO 60 mg BID CLAY Administration Glucagon 1 mg 08/21/21 21:17 Glucagon For Inj 1 Mg Vial IM PRN PRN Hypoglycemia Protocol Glucose 15 gm 08/21/21 21:17 Glucose Oral Gel 15 Gm Of Glucse In 37.5 Gm Tube PO PRN PRN Hypoglycemia Protocol Dextrose 1,000 mls @ 100 mls/hr 08/21/21 21:17 Dextrose 5% 1,000 Ml IVPB PRN PRN Hypogl
[2021-08-23] MEDS: HYDROcodone/acetaminophen (*CRX) 5-325 MG TABLET 1 TAB PO (13:59)
[2021-08-23 14:00] VITALS: BP 111/50; PULSE 63; RESP 16; TEMP 37.1; O2SAT 95
--- NOTE | 2021-08-23 16:19 | PM.IMPN ---
Progress Note: A&P Assessment and Plan (1) Unstageable skin ulcer of sacral region: Code(s): L98.429 - Non-pressure chronic ulcer of back with unspecified severity Status: Acute Assessment and Plan: # stage III sacral decubitus ulcer this post excisional debridement per surgery. After debridement received the area looked healthy per surgical note. No evidence of osteomyelitis. Sacral decubitus ulcer could be pressure related without infection. Will watch without antibiotics. #Wound care to continue need further rehabilitation for healing of the sacral decubitus ulcer. She lives alone with clinical pathologist at home minimal ambulation use of wheelchair mostly and able to transfer. # working with PT/OT # waiting on dispo to either rehab, snf, or home with home health (2) Type 2 diabetes mellitus without complications: Qualifiers: Diabetes mellitus detention insulin use: with detention use Qualified Code(s): E11.9 - Type 2 diabetes mellitus without complications; Z79.4 - assisted (current) use of insulin Code(s): E11.9 - Type 2 diabetes mellitus without complications Status: Acute Assessment and Plan: # type 2 diabetes mellitus on insulin. Continue to monitor Accu-Cheks AC and HS. Start SSI. A1c recently was 6 (3) CHF (congestive heart failure): Qualifiers: Heart failure type: diastolic Heart failure chronicity: acute on chronic Qualified Code(s): I50.33 - Acute on chronic diastolic (congestive) heart failure Code(s): I50.9 - Heart failure, unspecified Status: Acute Assessment and Plan: # history of congestive heart failure well compensated currently continue medication. Echo with EF 60-65% with grade 1 diastolic dysfunction 01/22/2021 (4) A-fib: Qualifiers: Atrial fibrillation type: unspecified Qualified Code(s): I48.91 - Unspecified atrial fibrillation Code(s): I48.91 - Unspecified atrial fibrillation Status: Acute Assessment and Plan: # atrial fibrillation on warfarin at home INR was 1.8 this morning. # spoke w/ Dr. Khalil who states Coumadin can be restarted as long as there is no significant bleeding from wound site # coumadin restarted, will recheck INR (5) Chronic kidney disease, stage 3 (moderate): Qualifiers: Chronic kidney disease stage 3 subtype: stage 3b (GFR 30-44) Qualified Code(s): N18.32 - Chronic kidney disease, stage 3b Code(s): N18.3 - Chronic kidney disease, stage 3 (moderate) Status: Acute Assessment and Plan: # chronic kidney disease stage 3 creatinine ranges between 1-1.4 (6) Chronic hypoxemic respiratory failure: Code(s): J96.11 - Chronic respiratory failure with hypoxia Status: Acute Assessment and Plan: # chronic hypoxemic respiratory failure on home oxygen related to CHF/COPD # room air to 2L NC is baseline per patient # was on room air during my exam today (7) Chronic obstructive pulmonary disease, unspecified: Qualifiers: COPD type: unspecified COPD Qualified Code(s): J44.9 - Chronic obstructive pulmonary disease, unspecified Code(s): J44.9 - Chronic obstructive pulmonary disease, unspecified Status: Acute Assessment and Plan: # COPD on home oxygen not in exacerbation (8) Essential (primary) hypertension: Code(s): I10 - Essential (primary) hypertension Status: Acute Assessment and Plan: # continue home meds # stable (9) Obstructive sleep apnea (adult) (pediatric): Code(s): G47.33 - Obstructive sleep apnea (adult) (pediatric) Status: Acute Assessment and Plan: # SWATI on BiPAP with 4 L oxygen along with it (10) JULIANNA (iron deficiency anemia): Code(s): D50.9 - Iron deficiency anemia, unspecified Status: Acute Assessment and Plan: # chronic anemia continue to monitor hemoglobin at 9 which is
[2021-08-23] MEDS: WARFARIN (*PBKC) 3 MG TABLET PO (16:34)
[2021-08-23 16:41] LABS: Glucose Point of Care 129 mg/dl (65-105)
[2021-08-23 21:00] VITALS: PULSE 75
[2021-08-23] MEDS: ATORVASTATIN 20 MG TABLET PO (21:00)
[2021-08-23 21:09] VITALS: BP 116/42; PULSE 74; RESP 20; TEMP 36.9; O2SAT 90
[2021-08-23 21:09] LABS: Glucose Point of Care 152 mg/dl (65-105)
[2021-08-23 23:16] LABS: Glucose Point of Care 161 mg/dl (65-105)
[2021-08-23] MEDS: SOD HYPOCHLORITE 1/4 STRENGTH 473 ML 1 APPLIC TOPICAL (23:21)
[2021-08-24] VITALS (7 sets, daily range): BP systolic 96–126; BP diastolic 41–68; PULSE 68–79; RESP 16–21; TEMP 36.3–36.9; O2SAT 96–100
[2021-08-24] MEDS: LEVOTHYROXINE SODIUM 25 MCG TABLET PO (06:18)
[2021-08-24 06:21] LABS: INR 1.4; Prothrombin Time 17.3 Seconds (11.1-14.7)
[2021-08-24 06:22] LABS: Potassium 4.2 mmol/L (3.4-5.0)
[2021-08-24 07:50] LABS: Glucose Point of Care 126 mg/dl (65-105)
[2021-08-24] MEDS: FLUTICASONE PROPIONATE 0.05% NA SPR 16 GM BTL (*BKC) 2 SPRAY NASAL (08:50)
[2021-08-24] MEDS: lisinopriL 5 MG TABLET PO (08:51)
[2021-08-24] MEDS: METOPROLOL TARTRATE 50 MG TAB PO ×2 (08:51→20:30)
[2021-08-24] MEDS: ACETAMINOPHEN 500 MG TABLET 1000 MG PO ×2 (08:51→20:13)
[2021-08-24] MEDS: POTASSIUM CHLORIDE 20 MEQ TABLET.ER PO (08:52)
[2021-08-24] MEDS: FOLIC ACID 1 MG TABLET PO (08:53)
[2021-08-24] MEDS: allopurinoL 100 MG TABLET 200 MG PO (08:53)
[2021-08-24] MEDS: CYANOCOBALAMIN 1,000 MCG TABLET 1000 MCG PO (08:53)
[2021-08-24] MEDS: ASCORBIC ACID 500 MG TABLET PO ×2 (08:53→18:05)
[2021-08-24] MEDS: FLUCONAZOLE 100 MG TABLET PO (08:53)
[2021-08-24] MEDS: SOD HYPOCHLORITE 1/4 STRENGTH 473 ML 1 APPLIC TOPICAL ×2 (08:53→20:14)
[2021-08-24] MEDS: PANTOPRAZOLE 40 MG TABLET PO (08:53)
[2021-08-24] MEDS: FUROSEMIDE 20 MG TABLET 60 MG PO ×2 (08:53→18:05)
--- NOTE | 2021-08-24 09:40 | PM.IMPN ---
Progress Note: A&P Assessment and Plan (1) Type 2 diabetes mellitus without complications: Qualifiers: Diabetes mellitus residential insulin use: with residential use Qualified Code(s): E11.9 - Type 2 diabetes mellitus without complications; Z79.4 - shelter (current) use of insulin Code(s): E11.9 - Type 2 diabetes mellitus without complications Status: Acute Assessment and Plan: # type 2 diabetes mellitus on insulin. Continue to monitor Accu-Cheks AC and HS. Start SSI. A1c recently was 6 # per chart review patient is supposed to be on 70 units of Lantus QHS. This has been held throughout her admission and her blood sugars have been well controlled without it. Fasting sugar yesterday morning 104 and today 126. I asked patient today if this was the correct dose and she says yes, in fact it used to be 80 units. I advised her we will continue to hold it on now and likely on discharge as well and she will need to have repeat blood work done outpatient and follow up with pcp. On discharge recommend she continue sliding scale but continue to hold Lantus, close f/u w/ pcp for diabetes management (2) Unstageable skin ulcer of sacral region: Code(s): L98.429 - Non-pressure chronic ulcer of back with unspecified severity Status: Acute Assessment and Plan: # stage III sacral decubitus ulcer this post excisional debridement per surgery. After debridement received the area looked healthy per surgical note. No evidence of osteomyelitis. Sacral decubitus ulcer could be pressure related without infection. Will watch without antibiotics. #Wound care to continue need further rehabilitation for healing of the sacral decubitus ulcer. She lives alone with card boxer at home minimal ambulation use of wheelchair mostly and able to transfer. # working with PT/OT # waiting on dispo to either rehab, snf, or home with home health (3) CHF (congestive heart failure): Qualifiers: Heart failure chronicity: acute on chronic Heart failure type: diastolic Qualified Code(s): I50.33 - Acute on chronic diastolic (congestive) heart failure Code(s): I50.9 - Heart failure, unspecified Status: Acute Assessment and Plan: # history of congestive heart failure well compensated currently continue medication. Echo with EF 60-65% with grade 1 diastolic dysfunction 01/22/2021 (4) A-fib: Qualifiers: Atrial fibrillation type: unspecified Qualified Code(s): I48.91 - Unspecified atrial fibrillation Code(s): I48.91 - Unspecified atrial fibrillation Status: Acute Assessment and Plan: # atrial fibrillation on warfarin at home INR was 1.8 this morning. # spoke w/ Dr. Khalil who states Coumadin can be restarted as long as there is no significant bleeding from wound site # Coumadin restarted at her 3 mg dose but INR continues to trend down, 1.4 today. # increased to 5 mg Coumadin today, will continue checking daily (5) Chronic kidney disease, stage 3 (moderate): Qualifiers: Chronic kidney disease stage 3 subtype: stage 3b (GFR 30-44) Qualified Code(s): N18.32 - Chronic kidney disease, stage 3b Code(s): N18.3 - Chronic kidney disease, stage 3 (moderate) Status: Acute Assessment and Plan: # chronic kidney disease stage 3 creatinine ranges between 1-1.4 (6) Chronic hypoxemic respiratory failure: Code(s): J96.11 - Chronic respiratory failure with hypoxia Status: Acute Assessment and Plan: # chronic hypoxemic respiratory failure on home oxygen related to CHF/COPD # room air to 2L NC is baseline per patient # was on room air during my exam today (7) Chronic obstructive pulmonary disease, unspecified: Qualifiers: COPD type: unspecified COPD Qualified Code(s): J44.9 - Chronic obstructive pulmonary disease, unspecified Code(s): J44.9 - Chronic obstructive pulmona
[2021-08-24 11:54] LABS: Glucose Point of Care 159 mg/dl (65-105)
--- NOTE | 2021-08-24 11:58 | PM.PNGS ---
Progress Note: A&P Assessment and Plan (1) Decubitus ulcer of sacral region, stage 4: Code(s): L89.154 - Pressure ulcer of sacral region, stage 4 Status: Acute Assessment and Plan: Had another discussion with patient about her care and outlook. This wound has a high chance of becoming infected or worsening if she is continuing with her current care that she is getting at home. She is by herself and only has caregiver help once a day. Home health would be limited on amount of extra care she can get. I think that SNF would be a better place in general for patient to get closer attention and wound care. She was refusing this at first, but is willing to look into a couple places and potentially give this a try. Will have Business Programmer speak with patient again about this option. Patient ready for discharge pending disposition. Subjective Subjective Date/Time Seen: 08/24/21 11:58 Interval history: Odor during packing changes is improving somewhat. Patient still has concerns about SNF, but also has concerns about HH being able to meet all of her needs for care. Exam Skin: Other: Sacral decubitus ulcer with superficial necrotic debris in base. Objective Data Vital Signs Vital Signs: Vital Signs - 24 hr 08/23/21 14:00 08/23/21 21:00 08/23/21 21:09 Temperature 37.1 C 36.9 C Pulse Rate 63 75 74 Respiratory Rate 16 20 Blood Pressure 111/50 L 116/42 L Pulse Oximetry 95 90 08/24/21 05:46 08/24/21 08:51 Temperature 36.3 C L Pulse Rate 68 73 Respiratory Rate 20 Blood Pressure 126/41 L Pulse Oximetry 98 Intake/Output Intake/Output: Intake & Output 08/21/21 08/22/21 08/23/21 08/24/21 23:59 23:59 23:59 23:59 Intake Total 500 2550 2180 530 Output Total 900 2200 4600 2600 Balance -400 087 -6626 -4388 Meds/Results Medications: Active Medications Generic Name Dose Route Start Last Admin Trade Name Freq PRN Reason Stop Dose Admin Acetaminophen 500 mg 08/21/21 17:08 Acetaminophen 500 Mg Tablet PO Q6H PRN Mild Pain (1-3) or Fever Acetaminophen 1,000 mg 08/21/21 21:00 08/24/21 08:51 Acetaminophen 500 Mg Tablet PO 1,000 mg Q12HR CLAY Administration Hydrocodone Bitart/Acetaminophen 1 tab 08/21/21 17:08 08/23/21 13:59 Hydrocodone/Acetaminophen (*Crx) 5-325 Mg Tablet PO 1 tab Q4H PRN Administration Pain Rated 4-6 Hydrocodone Bitart/Acetaminophen 1 tab 08/21/21 17:08 08/22/21 22:16 Hydrocodone/Acetaminophen (*Crx) 10-325 Mg Tablet PO 1 tab Q6H PRN Administration Pain Rated 7-10 Albuterol 2 puff 08/21/21 17:08 Albuterol Sulfate (*Sp) Aerosol 1 Puff INHALATION QID PRN Shortness Of Breath Allopurinol 200 mg 08/22/21 09:00 08/24/21 08:53 Allopurinol 100 Mg Tablet PO 200 mg QAM CLAY Administration Ascorbic Acid 500 mg 08/22/21 09:00 08/24/21 08:53 Ascorbic Acid 500 Mg Tablet PO 500 mg BID CLAY Administration Atorvastatin Calcium 20 mg 08/21/21 21:00 08/23/21 21:00 Atorvastatin 20 Mg Tablet PO 20 mg HS CLAY Administration Cyanocobalamin 1,000 mcg 08/22/21 09:00 08/24/21 08:53 Cyanocobalamin 1,000 Mcg Tablet PO 1,000 mcg QAM CLAY Administration Dextrose 12.5 gm 08/21/21 21:17 Dextrose 50% 25 Gm/50 Ml Syringe IV PUSH PRN PRN Hypoglycemia Protocol Fluconazole 100 mg 08/22/21 09:00 08/24/21 08:53 Fluconazole 100 Mg Tablet PO 100 mg Q48H CLAY Administration Fluticasone Propionate 2 spray 08/22/21 09:00 08/24/21 08:50 Fluticasone Propionate 0.05% Na Spr 16 Gm Btl (*Bkc) NASAL 2 spray QAM CLAY Administration Folic Acid 1 mg 08/22/21 09:00 08/24/21 08:53 Folic Acid 1 Mg Tablet PO 1 mg DAILY CLAY Administration Furosemide 60 mg 08/21/21 17:08 08/24/21 08:53 Furosemide 20 Mg Tablet PO 60 mg BID CLAY Administration Glucagon 1 mg 08/21/21 21:17 Glucagon For Inj 1 Mg Vial IM PRN PRN Hypoglycemia Protoc
[2021-08-24 16:39] LABS: Glucose Point of Care 153 mg/dl (65-105)
[2021-08-24] MEDS: WARFARIN (*PBKC) 5 MG TABLET PO (18:04)
[2021-08-24] MEDS: HYDROcodone/acetaminophen (*CRX) 10-325 MG TABLET 1 TAB PO (18:13)
[2021-08-24] MEDS: ATORVASTATIN 20 MG TABLET PO (20:13)
[2021-08-24 21:10] LABS: Glucose Point of Care 169 mg/dl (65-105)
[2021-08-25] MEDS: LEVOTHYROXINE SODIUM 25 MCG TABLET PO (05:39)
[2021-08-25 06:00] VITALS: BP 106/49; PULSE 75; RESP 20; TEMP 36.4; O2SAT 98
[2021-08-25 06:03] LABS: Anion Gap 2 mmol/L (8-16); Blood Urea Nitrogen 40 mg/dL (7-17); Calcium 8.6 mg/dL (8.4-10.2); Carbon Dioxide 34 mmol/L (22-30); Chloride 96 mmol/L (98-107); Estimated CRCL calculation 52 ml/min; Estimated Glomerular Filt Rate 40; Glucose 139 mg/dL (65-110); Sodium 132 mmol/L (137-145)
[2021-08-25 06:06] LABS: INR 1.5; Prothrombin Time 17.4 Seconds (11.1-14.7)
[2021-08-25 08:20] LABS: Glucose Point of Care 135 mg/dl (65-105)
[2021-08-25 09:31] VITALS: PULSE 81
[2021-08-25] MEDS: CYANOCOBALAMIN 1,000 MCG TABLET 1000 MCG PO (09:31)
[2021-08-25] MEDS: POTASSIUM CHLORIDE 20 MEQ TABLET.ER PO (09:31)
[2021-08-25] MEDS: METOPROLOL TARTRATE 50 MG TAB PO (09:31)
[2021-08-25] MEDS: allopurinoL 100 MG TABLET 200 MG PO (09:31)
[2021-08-25] MEDS: FUROSEMIDE 20 MG TABLET 60 MG PO (09:31)
[2021-08-25] MEDS: lisinopriL 5 MG TABLET PO (09:31)
[2021-08-25] MEDS: ACETAMINOPHEN 500 MG TABLET 1000 MG PO (09:31)
[2021-08-25] MEDS: PANTOPRAZOLE 40 MG TABLET PO (09:32)
[2021-08-25] MEDS: ASCORBIC ACID 500 MG TABLET PO (09:32)
[2021-08-25] MEDS: SOD HYPOCHLORITE 1/4 STRENGTH 473 ML 1 APPLIC TOPICAL (09:32)
[2021-08-25] MEDS: FOLIC ACID 1 MG TABLET PO (09:32)
[2021-08-25] MEDS: FLUTICASONE PROPIONATE 0.05% NA SPR 16 GM BTL (*BKC) 2 SPRAY NASAL (09:32)
--- NOTE | 2021-08-25 11:23 | PM.IMPN ---
Progress Note: A&P Assessment and Plan (1) Type 2 diabetes mellitus without complications: Qualifiers: Diabetes mellitus care home insulin use: with care home use Qualified Code(s): E11.9 - Type 2 diabetes mellitus without complications; Z79.4 - care home (current) use of insulin Code(s): E11.9 - Type 2 diabetes mellitus without complications Status: Acute Assessment and Plan: # type 2 diabetes mellitus on insulin. Continue to monitor Accu-Cheks AC and HS. Start SSI. A1c recently was 6 # per chart review patient is supposed to be on 70 units of Lantus QHS. This has been held throughout her admission and her blood sugars have been well controlled without it. Fasting sugar yesterday morning 104 and today 126. I asked patient today if this was the correct dose and she says yes, in fact it used to be 80 units. I advised her we will continue to hold it on now and likely on discharge as well and she will need to have repeat blood work done outpatient and follow up with pcp. On discharge recommend she continue sliding scale but continue to hold Lantus, close f/u w/ pcp for diabetes management (2) Unstageable skin ulcer of sacral region: Code(s): L98.429 - Non-pressure chronic ulcer of back with unspecified severity Status: Acute Assessment and Plan: # stage III sacral decubitus ulcer this post excisional debridement per surgery. After debridement received the area looked healthy per surgical note. No evidence of osteomyelitis. Sacral decubitus ulcer could be pressure related without infection. Will watch without antibiotics. #Wound care to continue need further rehabilitation for healing of the sacral decubitus ulcer. She lives alone with petroleum supply specialist at home minimal ambulation use of wheelchair mostly and able to transfer. # working with PT/OT # waiting on dispo to either rehab, snf, or home with home health (3) CHF (congestive heart failure): Qualifiers: Heart failure type: diastolic Heart failure chronicity: acute on chronic Qualified Code(s): I50.33 - Acute on chronic diastolic (congestive) heart failure Code(s): I50.9 - Heart failure, unspecified Status: Acute Assessment and Plan: # history of congestive heart failure well compensated currently continue medication. Echo with EF 60-65% with grade 1 diastolic dysfunction 01/22/2021 (4) A-fib: Qualifiers: Atrial fibrillation type: unspecified Qualified Code(s): I48.91 - Unspecified atrial fibrillation Code(s): I48.91 - Unspecified atrial fibrillation Status: Acute Assessment and Plan: # atrial fibrillation on warfarin at home INR was 1.8 this morning. # spoke w/ Dr. Khalil who states Coumadin can be restarted as long as there is no significant bleeding from wound site # Coumadin restarted at her 3 mg dose but INR continues to trend down, 1.4 today. # increased to 5 mg Coumadin today, INR today 1.5. recommend dc on 5 mg Coumadin with daily INR lab draws (5) Chronic kidney disease, stage 3 (moderate): Qualifiers: Chronic kidney disease stage 3 subtype: stage 3b (GFR 30-44) Qualified Code(s): N18.32 - Chronic kidney disease, stage 3b Code(s): N18.3 - Chronic kidney disease, stage 3 (moderate) Status: Acute Assessment and Plan: # chronic kidney disease stage 3 creatinine ranges between 1-1.4 (6) Chronic hypoxemic respiratory failure: Code(s): J96.11 - Chronic respiratory failure with hypoxia Status: Acute Assessment and Plan: # chronic hypoxemic respiratory failure on home oxygen related to CHF/COPD # room air to 2L NC is baseline per patient # was on room air during my exam today (7) Chronic obstructive pulmonary disease, unspecified: Qualifiers: COPD type: unspecified COPD Qualified Code(s): J44.9 - Chronic obstructive pulmonary disease, unspecified
[2021-08-25 11:47] LABS: EDCOVIDSCREEN Negative (Negative)
[2021-08-25 12:07] LABS: Glucose Point of Care 171 mg/dl (65-105)
--- NOTE | 2021-08-25 12:29 | PM.DS ---
DS: Admitting Diagnosis Discharge Date 08/25/2021 Admitting Diagnosis unstageable necrotic sacral decubitus ulcer congestive heart failure chronic hypoxemic respiratory failure atrial fibrillation chronic anticoagulation insulin-dependent diabetes essential hypertension obstructive sleep apnea morbid obesity DS: Discharge Diagnosis Discharge Diagnosis (1) Decubitus ulcer of sacral region, stage 4: Code(s): L89.154 - Pressure ulcer of sacral region, stage 4 Status: Chronic (2) CHF (congestive heart failure): Qualifiers: Heart failure type: diastolic Heart failure chronicity: acute on chronic Qualified Code(s): I50.33 - Acute on chronic diastolic (congestive) heart failure Code(s): I50.9 - Heart failure, unspecified Status: Chronic (3) Morbid obesity with BMI of 60.0-69.9, adult: Code(s): E66.01 - Morbid (severe) obesity due to excess calories; Z68.44 - Body mass index [BMI] 60.0-69.9, adult Status: Chronic (4) A-fib: Qualifiers: Atrial fibrillation type: unspecified Qualified Code(s): I48.91 - Unspecified atrial fibrillation Code(s): I48.91 - Unspecified atrial fibrillation Status: Chronic (5) Chronic hypoxemic respiratory failure: Code(s): J96.11 - Chronic respiratory failure with hypoxia Status: Chronic (6) Essential (primary) hypertension: Code(s): I10 - Essential (primary) hypertension Status: Chronic (7) Obstructive sleep apnea (adult) (pediatric): Code(s): G47.33 - Obstructive sleep apnea (adult) (pediatric) Status: Chronic (8) Hx of pulmonary embolus: Code(s): Z86.711 - Personal history of pulmonary embolism Status: Chronic (9) Chronic anticoagulation: Code(s): Z79.01 - exterminator helper (current) use of anticoagulants Status: Chronic DS: Summary Hospital Course Hospital Course: patient presented with an unstageable necrotic foul-smelling sacral decubitus on 08/17/2021. She was taken to surgery on 08/21/2021 and extensive debridement was carried out. Following the surgery, she was admitted for wound care. She was treated with Dakin solution b.i.d. as well as Aloe Mackay to labial source. Patient had urinary incontinence and chronic indwelling Crockett catheter was placed. Her medical problems were managed by the hospitalist service who saw her in consultation. Patient's wound responded to the debridement and Dakin solution. She initially was reluctant to change her living situation but eventually agreed to go to long term. She is discharged now on postoperative day 4. To long term facility with continued Dakin's dressing changes and follow-up wound care to be arranged. Status at Discharge Functional status at discharge: wheelchair bound Overall status at discharge: patient is progressing back to baseline Time Spent with Patient Time attestation: Total time spent providing and/or coordinating discharge services: Time spent: Greater than 30 minutes DS: Data Data Completed and Pending Labs on day of discharge: Labs from last 24 hours 08/25/21 08/25/21 08/25/21 11:51 11:25 08:08 PT INR Sodium Potassium Chloride Carbon Dioxide Anion Gap BUN Creatinine Estim Creat Clear Calc Estimated GFR Glucose POC Capillary Glucose 171 H 135 H Calcium SARS-CoV-2 IgG/IgM Ag?Rapid Negative 08/25/21 08/25/21 08/24/21 05:38 05:38 20:11 PT 17.4 H INR 1.5 Sodium 132 L Potassium 4.0 Chloride 96 L Carbon Dioxide 34 H Anion Gap 2 L BUN 40 H Creatinine 1.30 H Estim Creat Clear Calc 52 Estimated GFR 40 L Glucose 139 H POC Capillary Glucose 169 H Calcium 8.6 SARS-CoV-2 IgG/IgM Ag?Rapid 08/24/21 16:27 PT INR Sodium Potassium Chloride Carbon Dioxide Anion Gap BUN Creatinine Estim Creat Clear Calc Estimated GFR Glucose POC Capillary Glu
[2021-08-25] MEDS: HYDROcodone/acetaminophen (*CRX) 5-325 MG TABLET 1 TAB PO (13:38)
[2021-08-25 14:26] VITALS: BP 126/72; PULSE 72; RESP 16; TEMP 36.6; O2SAT 97
== END 2021-08-25 15:00 | DRG 579 ==
LOC: ANH2MED 19:44
PROVIDERS: Internal Medicine; Admitting Provider Surgery; PCP Internal Medicine; Visit Provider Physician Assistant
PROC: 0KBP0ZZ Excision of Left Hip Muscle, Open Approach (ICD-10-PCS; CPT 46040; principal; 2021-08-21 12:00)
DX: L89.154 Pressure ulcer of sacral region, stage 4 (principal); I50.33 Acute on chronic diastolic (congestive) heart failure; Z68.43 Body mass index [BMI] 50.0-59.9, adult; J96.11 Chronic respiratory failure with hypoxia; I13.0 Hypertensive heart and chronic kidney disease with heart failure and stage 1 through stage 4 chronic kidney disease, or unspecified chronic kidney disease; C7A.8 Other malignant neuroendocrine tumors; E11.22 Type 2 diabetes mellitus with diabetic chronic kidney disease; Z20.822 Contact with and (suspected) exposure to COVID-19; E11.42 Type 2 diabetes mellitus with diabetic polyneuropathy; N18.32 Chronic kidney disease, stage 3b; I48.91 Unspecified atrial fibrillation; E66.01 Morbid (severe) obesity due to excess calories; G47.33 Obstructive sleep apnea (adult) (pediatric); K21.9 Gastro-esophageal reflux disease without esophagitis; I89.0 Lymphedema, not elsewhere classified; D50.9 Iron deficiency anemia, unspecified; J44.9 Chronic obstructive pulmonary disease, unspecified; I25.10 Atherosclerotic heart disease of native coronary artery without angina pectoris; E78.5 Hyperlipidemia, unspecified; R32 Unspecified urinary incontinence; Z86.711 Personal history of pulmonary embolism; Z79.01 Long term (current) use of anticoagulants; Z99.81 Dependence on supplemental oxygen; Z79.4 Long term (current) use of insulin
CPT/HCPCS: 36415; 80048; 82948; 84132; 85014; 85018; 85025; 85027; 85610; 85730; 87426; 93005; 97161; 97165; 97530; 97535; A9270; C9803; J0690; J2250; J2370; J2405; J3010; J7120